=== PATIENT | female | born 1960 | race Caucasian/White ===

== ENCOUNTER → 2017-09-17 13:57 | Outpatient (CLI) | payer OTHER, SELFPAY ==
[2017-09-17 15:43] LABS: Alanine Aminotransferase 32 IU/L (9-52); Albumin 4.5 g/dL (3.5-5.0); Albumin Globulin Ratio 1.6 (1.0-2.8); Alkaline Phosphatase 72 U/L (38-126); Aspartate Aminotransferase 19 IU/L (14-36); BUN Creatinine Ratio 25.5 (6-22); Bilirubin Total 0.4 mg/dL (0.2-1.3); Blood Urea Nitrogen 28 mg/dL (7-17); Calcium 9.6 mg/dL (8.4-10.2); Carbon Dioxide 24 mmol/L (22-32); Chloride 104 mmol/L (98-107); Cholesterol 171 mg/dL (140-199); Estimated Glomerular Filt Rate 51.4 mL/min (>60); Globulin 2.9 g/dL (1.7-4.1); Glucose 102 mg/dL (70-100); HDL Cholesterol 54 mg/dL (40-60); HEMOLYSIS 20 (0-50); LDL Cholesterol Calculated 85 mg/dL (<100); Potassium 4.4 mmol/L (3.4-5.1); Sodium 143 mmol/L (137-145); Total Protein 7.4 g/dL (6.3-8.2); Triglycerides 158 mg/dL (35-150)
[2017-09-17 16:00] LABS: Free T4, Direct Thyroxine 1.22 ng/dL (0.78-2.19)
[2017-09-17 16:01] LABS: Free T3, Triiodothyronine Free 3.35 pg/mL (2.77-5.27)
[2017-09-17 16:14] LABS: Thyroid Stimulating Hormone 6.99 uIU/mL (0.47-4.68)
== END ==
PROVIDERS: PCP Family Medicine; Visit Provider Family Medicine
DX: E03.9 Hypothyroidism, unspecified (principal); I10 Essential (primary) hypertension; E66.9 Obesity, unspecified
CPT/HCPCS: 36415; 80053; 80061; 84439; 84443; 84481

== ENCOUNTER → 2017-09-20 13:57 | Outpatient (CLI) | payer OTHER, SELFPAY | PROVIDERS: Family Provider Family Medicine; PCP Family Medicine; Visit Provider Family Medicine | DX: Z53.9 Procedure and treatment not carried out, unspecified reason (principal); I10 Essential (primary) hypertension; E03.9 Hypothyroidism, unspecified; Z20.5 Contact with and (suspected) exposure to viral hepatitis; Z12.4 Encounter for screening for malignant neoplasm of cervix ==

== ENCOUNTER → 2017-10-24 14:04 | Outpatient (CLI) | payer OTHER, SELFPAY ==
[2017-10-24 16:05] LABS: BUN Creatinine Ratio 25.7 (6-22); Blood Urea Nitrogen 36 mg/dL (7-17); Calcium 9.5 mg/dL (8.4-10.2); Carbon Dioxide 26 mmol/L (22-32); Chloride 105 mmol/L (98-107); Estimated Glomerular Filt Rate 38.9 mL/min (>60); Glucose 98 mg/dL (70-100); HEMOLYSIS 15 (0-50); Potassium 4.2 mmol/L (3.4-5.1); Sodium 143 mmol/L (137-145)
[2017-10-24 16:30] LABS: TSH w/ Reflex to FT4 4.24 uIU/mL (0.47-4.68)
[2017-10-24 17:00] LABS: Hep C Virus Ab w/Reflex Quant NEGATIVE s/c (NEGATIVE)
== END ==
PROVIDERS: Family Provider Family Medicine; PCP Family Medicine; Visit Provider Family Medicine
DX: I10 Essential (primary) hypertension (principal); E03.9 Hypothyroidism, unspecified; Z20.5 Contact with and (suspected) exposure to viral hepatitis
CPT/HCPCS: 36415; 80048; 84443; 86803

== ENCOUNTER → 2018-01-07 10:24 | Outpatient (CLI) | payer OTHER, SELFPAY | DX: Z23 Encounter for immunization (principal) | CPT/HCPCS: 90471; 90686 ==

== ENCOUNTER → 2018-11-05 11:10 | Outpatient (CLI) | payer OTHER, SELFPAY ==
[2018-11-05 12:12] LABS: Alanine Aminotransferase 24 IU/L (9-52); Albumin 4.5 g/dL (3.5-5.0); Albumin Globulin Ratio 1.6 (1.0-2.8); Alkaline Phosphatase 64 U/L (38-126); Aspartate Aminotransferase 17 IU/L (14-36); Bilirubin Total 0.7 mg/dL (0.2-1.3); Blood Urea Nitrogen 21 mg/dL (7-17); Calcium 9.4 mg/dL (8.4-10.2); Carbon Dioxide 27 mmol/L (22-32); Chloride 104 mmol/L (98-107); Cholesterol 198 mg/dL (140-199); Estimated Glomerular Filt Rate > 60.0 mL/min (>60); Globulin 2.8 g/dL (1.7-4.1); Glucose 99 mg/dL (70-100); HDL Cholesterol 47 mg/dL (40-60); HEMOLYSIS < 15 (0-50); LDL Cholesterol Calculated 117 mg/dL (<100); Potassium 4.3 mmol/L (3.4-5.1); Sodium 141 mmol/L (137-145); Total Protein 7.3 g/dL (6.3-8.2); Triglycerides 171 mg/dL (35-150)
[2018-11-05 12:14] LABS: B Type Natriuretic Peptide < 100 (<100)
[2018-11-05 12:42] LABS: Thyroid Stimulating Hormone 2.63 uIU/mL (0.47-4.68)
== END ==
PROVIDERS: Family Provider Family Medicine; PCP Family Medicine; Visit Provider Internal Medicine Cardiovascular Disease
DX: I10 Essential (primary) hypertension (principal); R06.02 Shortness of breath; Z86.79 Personal history of other diseases of the circulatory system
CPT/HCPCS: 36415; 80053; 80061; 83880; 84443

== ENCOUNTER → 2019-02-10 15:14 | Outpatient (CLI) | payer OTHER, SELFPAY | PROVIDERS: PCP Family Medicine | DX: Z23 Encounter for immunization (principal) | CPT/HCPCS: 90471; 90686 ==

== ENCOUNTER → 2019-03-09 13:55 | Outpatient (CLI) | payer OTHER, SELFPAY ==
[2019-03-09 14:52] LABS: BUN Creatinine Ratio 23.3 (6-22); Blood Urea Nitrogen 28 mg/dL (7-17); Calcium 9.6 mg/dL (8.4-10.2); Carbon Dioxide 29 mmol/L (22-32); Chloride 104 mmol/L (98-107); Estimated Glomerular Filt Rate 46.3 mL/min (>60); Glucose 113 mg/dL (70-100); HEMOLYSIS < 15 (0-50); Potassium 4.4 mmol/L (3.4-5.1); Sodium 142 mmol/L (137-145)
[2019-03-09 15:14] LABS: B Type Natriuretic Peptide < 100 (<100)
== END ==
PROVIDERS: PCP Family Medicine; Visit Provider Family Medicine
DX: E66.9 Obesity, unspecified (principal); I10 Essential (primary) hypertension; I50.9 Heart failure, unspecified
CPT/HCPCS: 36415; 80048; 83880

== ENCOUNTER → 2019-03-17 14:44 | Outpatient (CLI) | payer OTHER, SELFPAY ==
[2019-03-17 16:11] LABS: BUN Creatinine Ratio 22.3 (6-22); Blood Urea Nitrogen 29 mg/dL (7-17); Calcium 9.5 mg/dL (8.4-10.2); Carbon Dioxide 27 mmol/L (22-32); Chloride 102 mmol/L (98-107); Estimated Glomerular Filt Rate 42.2 mL/min (>60); Glucose 116 mg/dL (70-100); HEMOLYSIS 17 (0-50); Potassium 4.2 mmol/L (3.4-5.1); Sodium 139 mmol/L (137-145)
== END ==
PROVIDERS: PCP Family Medicine; Visit Provider Family Medicine
DX: N17.9 Acute kidney failure, unspecified (principal)
CPT/HCPCS: 36415; 80048

== ENCOUNTER → 2019-04-21 13:58 | Outpatient (CLI) | payer OTHER, SELFPAY ==
[2019-04-21 15:32] LABS: BUN Creatinine Ratio 23.1 (6-22); Blood Urea Nitrogen 30 mg/dL (7-17); Calcium 9.6 mg/dL (8.4-10.2); Carbon Dioxide 27 mmol/L (22-32); Chloride 103 mmol/L (98-107); Estimated Glomerular Filt Rate 42.2 mL/min (>60); Glucose 120 mg/dL (70-100); HEMOLYSIS < 15 (0-50); Potassium 4.2 mmol/L (3.4-5.1); Sodium 140 mmol/L (137-145)
== END ==
PROVIDERS: PCP Family Medicine; Visit Provider Orthopaedic Surgery
DX: Z01.812 Encounter for preprocedural laboratory examination (principal); R73.9 Hyperglycemia, unspecified; Z01.818 Encounter for other preprocedural examination; I10 Essential (primary) hypertension
CPT/HCPCS: 36415; 80048; 93005

== ENCOUNTER → 2019-06-11 10:03 | Outpatient (CLI) | payer OTHER, SELFPAY ==
[2019-06-11 10:49] LABS: Add Manual Diff / Slide Review NO; Basophils Absolute Auto 100 /uL (0-100); Basophils Percent Auto 1.3 % (0-2); Eosinophils Absolute Auto 200 /uL (0-450); Eosinophils Percent Auto 2.4 % (2-4); Hematocrit 41.9 % (36-46); Hemoglobin 14.1 g/dL (12.0-16.0); Lymphocytes Absolute Auto 1900 /uL (1100-4500); Lymphocytes Percent Auto 24.9 % (25-40); Mean Corpuscular HGB Conc 33.6 % (30-36); Mean Corpuscular Hemoglobin 31.5 PG (26-34); Mean Corpuscular Volume 93.9 fL (80-100); Monocytes Absolute Auto 600 /uL (0-900); Neutrophils Absolute Auto 4900 /uL (1500-7000); Neutrophils Percent Auto 63.4 % (50-75); Platelet Count 236 X10^3/uL (150-400); Red Blood Cell Count 4.46 X10^6/uL (4.0-5.2); Red Cell Distribution Width 13.1 % (11.6-14.8); White Blood Cell Count 7.8 X10^3/uL (4.5-11.0)
[2019-06-11 10:58] LABS: Carbon Dioxide 27 mmol/L (22-32); Chloride 104 mmol/L (98-107); HEMOLYSIS < 15 (0-50); Potassium 4.3 mmol/L (3.4-5.1); Sodium 141 mmol/L (137-145)
== END ==
PROVIDERS: PCP Family Medicine; Referring Provider Orthopaedic Surgery; Visit Provider Orthopaedic Surgery
DX: Z01.812 Encounter for preprocedural laboratory examination (principal); Z01.818 Encounter for other preprocedural examination; R73.9 Hyperglycemia, unspecified
CPT/HCPCS: 36415; 80051; 83036; 85025

== ENCOUNTER 2019-06-17 08:41 | Day surgery (SDC) | payer OTHER, SELFPAY ==
[2019-06-10 13:35] VITALS: BMI 41.9
[2019-06-17] VITALS (13 sets, daily range): BP systolic 118–156; BP diastolic 60–99; PULSE 64–83; RESP 8–19; TEMP 36.6–37.5; O2SAT 91–99; BMI 41.9
--- NOTE | 2019-06-17 09:21 | DI.RAD.S_ITS ---
PROCEDURE: XR KNEE LT 1TO2V INDICATIONS: post op film TECHNIQUE: 2 view(s) of the knee acquired. COMPARISON: [facility] MARGARETTE Ritchie, XR KNEE ARTHRITIC SERIES BI, 04/20/2019, 15:00. FINDINGS: Bones: Patient is status post knee joint arthroplasty. Hardware components are in expected positions. Visualized bony structures are intact. Soft tissues: Overlying postoperative changes are noted. Expected postoperative changes within the overlying soft tissues are present there is a soft tissue air, edema and fluid. No unexpected radiopaque foreign bodies are evident. IMPRESSION: Expected postsurgical changes related to total left knee arthroplasty. Dictated by: Cholo Ramírez M.D. on 06/17/2019 at 13:16 Approved by: Cholo Ramírez M.D. on 06/17/2019 at 13:17
[2019-06-17] MEDS: LACTATED RINGERS 1,000 ML 42 ML IV (09:30)
[2019-06-17] MEDS: CELECOXIB 200 MG CAPSULE PO (09:42)
[2019-06-17] MEDS: ACETAMINOPHEN 325 MG TABLET 975 MG PO (09:42)
[2019-06-17] MEDS: PREGABALIN 75 MG CAPSULE PO (09:42)
--- NOTE | 2019-06-17 10:56 | PM.PREOP ---
Pre-operative Note Interval Note History & Physical reviewed/Exam performed by Physician: Yes Changes to H&P: No
--- NOTE | 2019-06-17 10:57 | PM.OP.1 ---
Operative Date/Time/Diagnoses Date of procedure: 06/17/19 Time of procedure: 13:23 Pre-op diagnosis: Left knee osteoarthritis Post-op diagnosis: same Procedure & Clinicians Procedure: Left total knee arthroplasty Same procedure as scheduled: Yes Indications: The patient presents today for total knee arthroplasty after failure of conservative treatment. The nature of the procedure including the risks and benefits, alternatives, postoperative course and expected outcome were discussed and all questions answered. Consent was obtained. Operative site confirmed and marked. Surgeon: Lino Luz Associate Embalmer/Funeral Director: Phil Choi Anesthesia Type: General and Local Operative Notes Findings: A standard +0 femoral cut was made. The tibial cut was made at approximately 11 mm from the less affected lateral side. The knee was well balanced in flexion-extension with standard releases and osteophyte removal. The knee was just slightly more lax medially and laterally. Both gaps were slightly larger than expected and a 12 mm insert rather than the expected 10 mm insert was necessary. Final mediolateral balance and patellar tracking was excellent. Closure Type: primary Specimen(s): none sent Prosthetic devices, grafts, tissues, transplants, or devices: [employer] BCS: 5 femoral component, 3 tibial component, 12 mm BCS polyethylene tray and 32 x 9 mm round patella Applied: implant(s) Estimated Blood Loss (mL): 10 Blood products transfused: none Tourniquet time (min): 54 Procedure in detail: The patient was taken to the operative suite and placed under anesthesia. The patient was given prophylactic antibiotics prior to surgery. The patient was also given tranexamic acid, 1 g, just prior to surgery for postoperative hemostasis. The lateral knee was prepped and the joint injected with 20 mL of 1% Lidocaine with epinephrine. The knee was then prepped and draped in usual sterile fashion. The leg was exsanguinated with an Esmarch dressing and the tourniquet raised to 250 torr. A 15 cm anterior incision was made. Next a medial trivector arthrotomy was made. The extensor mechanism was marked to ensure accurate repair. Initial exposing dissection was carried out medially and laterally. The knee was then flexed and the intramedullary femoral guide mary jo placed. The distal femoral cut was made in 6? of valgus at the +0 position. The femoral size was measured and the appropriate cutting block was then placed and the anterior, posterior and chamfer cuts made. The intramedullary tibial alignment mary jo was then placed. The guide was set to remove approximately 11 mm from the less affected lateral side. The proximal tibial cut was then made with an oscillating saw. All meniscus and bony debris was then removed. Posterior femoral osteophytes removed with a curved osteotome. Flexion extension gaps were checked. No specific balancing was required other than routine exposure and removal of osteophytes. The soft tissues were then injected with a combination of 20 mL of half percent Marcaine with epinephrine and 20 mL of Exparel. The trial components were then placed. The knee was then extended and the patellar thickness was measured and a cut made removing approximately 9 mm of bone. The patella was then sized and drilled. Some excess lateral bone was excised and the patellofemoral ligament released. The knee went into full extension and flexion beyond 130?. There was excellent medial-lateral balance throughout motion. There was a slight increased medial as opposed to lateral laxity in extension. Patellar tracking was excellent. The trial components were removed and the knee was cleansed with Pulsavac irrigation and dried. The final components were cemented with high viscosity vacuum mixed bone cement with antibiotics. The joint was filled with a dilute Betadine solution. The knee was held in extension and the patellar clamped until the cement was adequately cured. The knee was then irrigated. The extensor mechanism was closed with 5 interrupted #1 Vicryl sutures and a running Quill suture at approximately 90 degrees of flexion. The joint was then injected with a combination of 1 g of tranexamic acid and 20 mL of quarter percent Marcaine with epinephrine. The subcutaneous tissue was closed with 2 0 Vicryl. The skin was closed with absorbable subcuticular sutures and surgical adhesive. An Aquacel dressing and Brandon wrap were then applied. The patient tolerated the procedure well and was returned to recovery room in good condition. Complications: none Post-operative Condition: stable Disposition: PACU Plan for aftercare: Standard postoperative total knee protocol.
[2019-06-17] MEDS: CEFAZOLIN 2 GM/100 ML FROZ.PIGGY IV (11:45)
[2019-06-17] MEDS: TRANEXAMIC ACID 1,000 MG VIAL 1000 MG INJ (12:10)
[2019-06-17] MEDS: LIDOCAINE 1% W/EPI 20 ML INJ (12:15)
--- NOTE | 2019-06-17 12:20 | SUR.OPER ---
Supine on padded OR bed. Pillow under head, arms secured on padded armboards <90 degree abduction. Safety belt across torso. Non-operative leg secured with tape over blanket over lower leg. Operative leg secured in Brian positioner. Foam padded brace at thigh of operative leg.
[2019-06-17] MEDS: BUPIVACAINE 0.25% W/ EPI (PF) 20 ML, TRANEXAMIC ACID 1,000 MG, SODIUM CHLORIDE 0.9% 10 ML INJ (12:24)
[2019-06-17] MEDS: BUPIVACAINE 0.25% W/ EPI (PF) 40 ML, BUPIVACAINE LIPOSOME 266 MG, SODIUM CHLORIDE 0.9% ... INJ (12:25)
[2019-06-17] MEDS: HYDROMORPHONE 2 MG INJ IV ×2 (13:46→14:08)
--- NOTE | 2019-06-17 14:51 | SUR.PHASEI ---
Report to TANIA Montanez. Pt transferred to room 218 in stable condition. No updates needed from original report. Family notified per pts request
--- NOTE | 2019-06-17 15:03 | PC.NURSE ---
Pt to floor at 1450; IV SL; O2 2L=95%; patient denies pain; SCDs active; pt awake and alert; call light within reach
[2019-06-17] MEDS: ACETAMINOPHEN 325 MG TABLET 650 MG PO ×2 (16:12→19:54)
[2019-06-17] MEDS: LACTATED RINGERS 1,000 ML 125 ML IV (16:12)
[2019-06-17] MEDS: IBUPROFEN 400 MG TABLET PO ×3 (17:26→23:56)
--- NOTE | 2019-06-17 18:50 | PC.NURSE ---
Addendum entered by Lidia Burrell R.N. 06/17/19 21:33: Stable post op course. 2PA to BCS w/o incidence. Med w/tylenol & ibuprofen for discomfort w/good relief. Dag CDI IVF continue as per orders. Call light w/in reach, bed alarm on for pt safety. Continue w/plan of care. Original Note: Pt awake, watching TV. Denies discomfort at this time. Lungs clear, SpO2 96% RA SCD in place. IVF infusing into the right hand at 125cc/hr via pump w/o incidence. Brandon/aquacell dsg to left knee CDI Call light w/n reach, bed alarm on for pt safety.
[2019-06-17] MEDS: METOPROLOL IR 50 MG TABLET 75 MG PO (19:54)
[2019-06-17] MEDS: ASPIRIN EC 81 MG TABLET PO (19:56)
[2019-06-17] MEDS: SIMVASTATIN 20 MG TABLET PO (20:06)
[2019-06-17] MEDS: buPROPion SR 100 MG TAB 200 MG PO (20:06)
[2019-06-17] MEDS: CEFAZOLIN VIAL 3 GM in SODIUM CHLORIDE 0.9% 100 ML 200 ML IV (20:09)
[2019-06-18] VITALS: BP 104/59; PULSE 73; RESP 16; TEMP 36.5; O2SAT 91
[2019-06-18] MEDS: LACTATED RINGERS 1,000 ML 125 ML IV (00:40)
[2019-06-18] MEDS: IBUPROFEN 400 MG TABLET PO ×3 (04:19→12:15)
[2019-06-18] MEDS: CEFAZOLIN VIAL 3 GM in SODIUM CHLORIDE 0.9% 100 ML 200 ML IV (04:19)
[2019-06-18 04:22] VITALS: BP 132/74; PULSE 70; RESP 18; TEMP 36.5; O2SAT 94
[2019-06-18] MEDS: OXYCODONE IR 5 MG TABLET 10 MG PO ×4 (05:10→15:24)
[2019-06-18 06:34] LABS: Hematocrit 36.6 % (36-46); Hemoglobin 12.2 g/dL (12.0-16.0)
[2019-06-18] MEDS: LEVOTHYROXINE 100 MCG TABLET 200 MCG PO (06:37)
--- NOTE | 2019-06-18 07:36 | PM.PNPO.1 ---
Subjective Subjective Date Patient Seen: 06/18/19 Time Patient Seen: 07:36 Interval history: POD #1 s/p left total knee arthroplasty with Dr. Luz. Patient's pain is well controlled with oxycodone, Tylenol, and ibuprofen. She is taking ASA for VTE prophylaxis. She is voiding without difficulty or assistance. Exam Vital Signs (past 8 hours): - 06/18/19 00:00 06/18/19 04:22 Temperature 97.7 F 97.7 F Pulse Rate 73 70 Respiratory Rate 16 18 Blood Pressure 104/59 L 132/74 Pulse Oximetry 91 94 Oxygen Delivery Method Nasal Cannula Oxygen Flow Rate 0 Narrative Exam Narrative: Patient lying in bed. Alert orient x3. Aquacel dressing CDI. She is able to actively dorsiflex and plantar flex. Pulses are symmetric. Calves are soft, compressible, nontender bilaterally. Objective Labs Result Diagrams: 06/18/19 06:20 Labs: Laboratory Results - last 24 hr 06/18/19 06:20 Hgb 12.2 Hct 36.6 Assessment & Plan Post-op Postoperative Procedures: Procedures Operation Date: 06/17/19 10:45 Actual Procedures Side Surgeon p Total Knee Arthroplasty Left Lino Luz MD Patient will mobilize with physical therapy today. Patient has been hypotensive and dizzy and will give 1 L bolus fluid. continue current pain control. Continue ASA for DVT prophylaxis. If patient mobilizing safely with adequate pain control she can discharge home today. Quality VTE Deep Vein Thrombosis/Pulmonary Embolism Present on Admission: No
[2019-06-18] MEDS: buPROPion SR 100 MG TAB 200 MG PO (09:04)
[2019-06-18] MEDS: FUROSEMIDE 20 MG TABLET PO (09:04)
[2019-06-18] MEDS: ACETAMINOPHEN 325 MG TABLET 650 MG PO ×2 (09:04→14:10)
[2019-06-18] MEDS: CITALOPRAM 20 MG TABLET 40 MG PO (09:04)
[2019-06-18] MEDS: METOPROLOL IR 50 MG TABLET 75 MG PO (09:05)
[2019-06-18] MEDS: ASPIRIN EC 81 MG TABLET PO (09:05)
[2019-06-18] MEDS: AMLODIPINE 5 MG TABLET PO (09:05)
[2019-06-18 09:40] VITALS: BP 152/78; PULSE 73; RESP 17; TEMP 36.6; O2SAT 98
--- NOTE | 2019-06-18 10:29 | CM.DANOTE ---
DCP; Case received, EMR reviewed and met with patient. Introduced self and role. Was able to obtain information from patient regarding her baseline activity level. DCP assessment completed with information currently available. Patient is a 59 year old female who admitted yesterday morning to the care of the orthopedic team. PCP: Dr. Acosta. Payer: confirmed: [facility]. Patient came to the hospital for a surgical procedure. She had left total knee arthroplasty. Patient has history of osteoarthritis in her knees, resulting in chronic pain. Met with patient in her room. She was sitting up in her bed, alert and oriented. She has not yet worked with P.T. 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 She stated, the standing has taken a toll on her knees. Confirmed with patient that her daughter, Lavonne Santana, will be assisting patient when she goes home. She will also be doing outpatient P.T. P: DCP to continue to follow. Patient should be able to go home when she is medically stable and cleared by P.T. Estefany Mcmillan RN/Computer Designer
--- NOTE | 2019-06-18 10:50 | PT.IIE ---
Current Diagnoses Unilateral primary osteoarthritis, left knee (06/17/19) Surgery Performed Operation Date: 06/17/19 10:45 Actual Procedures p Total Knee Arthroplasty(Left) - Lino Luz MD Surgical History (Last Updated 06/10/19 @ 13:50 by Aviva Garcia RN) S/P thoracentesis (Acute) Medical History (Last Updated 06/10/19 @ 15:22 by Aviva Garcia RN) Atrial fibrillation (Chronic) Cardiomyopathy (Chronic) Heart failure, systolic and diastolic (Chronic) Hyperlipidemia (Chronic) Hypertension (Chronic) Hyperthyroidism (Resolved) Hypothyroidism (Chronic) Moderate tobacco dependence (06/08/15) Obesity (Chronic) Sun allergy (Acute) Physical Therapy Inpatient Evaluation/Re-Eval M1 PT/OT-IP Prior Functional Status Start: 06/18/19 08:35 Freq: NEEDED Status: Active Protocol: Document 06/18/19 10:29 AW (Rec: 06/18/19 10:50 AW [id number]) Medical Review Prior Functional Status Medical History Reviewed Yes Communication WNl Mobility and Gait Pt has used a left knee brace for the past six months. She has been independent with ambulation but able to tolerate decreasing distances. Activities of Daily Living and IADL's Independent Social History Household Members other Living Arrangements House Number of Floors (Floors) One Floor Number of Stairs To Enter/Railing? 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 Pt intends to discharge to her daughter's home where daughter, daughter's boyfriend , and grandchildren will be available to assist 05/11. Pt's house has no stairs, but she will have better support at her daughter's house. M2 PT-IP Current Condition Start: 06/18/19 08:35 Freq: NEEDED Status: Active Protocol: Document 06/18/19 10:29 AW (Rec: 06/18/19 10:50 AW [id number]) Physical Therapy Current Condition Current Condition Evaluation Date 06/18/19 Treatment Diagnosis L TKA, impaired mobility Onset Date 06/17/19 Weight Bearing Status Weight Bearing Status Weight Bear as Tolerated M3 PT-IP Subjective Start: 06/18/19 08:35 Freq: NEEDED Status: Active Protocol: Document 06/18/19 10:29 AW (Rec: 06/18/19 10:50 AW [id number]) Subjective Physical Therapy Visit Type Type Initial Evaluation Visit Start Time 09:32 Visit Stop Time 10:00 Total Visit Minutes 28 Physical Therapy Visit Comments Patient Comments Pt is willing to participate with PT Patient Goals To discharge to her daughter's house with family support. Therapy Pain Assessment Pain When Pain Assessed At Rest Pain Present Pain Present Pain Reported Location left knee Intensity 5 Scale Used Numeric (1 - 10) Pain Management Techniques Apply Cold,Timing of Activity with Medications M4 PT-IP Mobility and Gait Start: 06/18/19 08:35 Freq: NEEDED Status: Active Protocol: Document 06/18/19 10:29 AW (Rec: 06/18/19 10:50 AW [id number]) PT-Bed Mobility Assessment Supine to Sit Supine to Sit Contact Guard Assistance Scooting Scooting to Edge of Bed Standby Assistance PT-Transfer Assessment Sit to and From Stand Sit to and from Stand Contact Guard Assistance,1 Person Assistance,Use of Upper Extremities Equipment Transfer Assistive Device Gait Belt,Front Wheeled Walker Orthotic/Prosthetic Devices or Brace: No Transfers Transfer Destination Chair Transfer Technique pt ambulated with fww Transfer Ability Level of Assist Contact Guard Assistance,Use of Upper Extremities Comments Mobility Comments Pt sitting up in bed upon PT arrival. She completed supine to sit CGA and sit to stand with FWW CGA. She brought her own walker to the hospital ( borrowed from [facility]) but it may be too narrow for her. After gait assessment, pt returned to the room and transferred to the chair SBA requiring cues to keep the walker with her until ready to sit and additional cues to use both hands on the chair arms to control her descent to sitting. Pt was positioned in the chair with fresh ice packs applied, call light and table within reach, and visitors in the room keeping her company. Gait Assessment Gait Gait Assistance Required: Contact Guard Assist Distance (Feet) 75 Able to Maintain Weight Bearing Status Yes During Gait Assistive Devices Assistive Device Gait Belt,Front Wheeled Walker Orthotic/Prosthetic Devices or Brace: No Gait Deviations General Gait Pattern Antalgic,Decreased Stride Length,Decreased Feet Clearance,Flexed Trunk,Step-to Gait Factors Limiting Gait Function Factors Limiting Gait Function Decreased Activity Tolerance, Decreased Strength,Limited Range of Motion,Pain,Poor Balance,Poor Safety Awareness Comments Gait Comments Pt ambulated in the halls with FWW CGA. She required cues to keep the FWW closer to her trunk for optimal support. It is possible that the walker is too narrow for her. Stair Climbing Assessment Comments Stair Climbing Comments Not assessed due to decreased activity tolerance PT-Balance Assessment Sitting Balance and Reactions Static Sitting Balance Ability Good Dynamic Sitting Balance Ability Good Standing Balance and Reactions Static Standing Balance Ability Good Dynamic Standing Balance Ability Good Device Used FWW M5 PT-IP Objective Assessments Start: 06/18/19 08:35 Freq: NEEDED Status: Active Protocol: Document 06/18/19 10:29 AW (Rec: 06/18/19 10:50 AW [id number]) Orientation Orientation/Cognition Level of Alertness Alert Orientation Name,Day of Week,Place, Situation Language Function Ability No Deficits Noted Safety Awareness Decreased Safety Awareness Memory Description No Deficits Noted Comments Pt requiring cues for walker management Gross Range of Motion Lower Extremity ROM Assessment Left Impaired Strength Lower Extremity Strength Assessment Bilaterally Impaired Hip 4/5 Knee 4/5 Ankle 4+/5 Coordination Assessment Gross Coordination Gross Coordination WNL Sensation Assessment Sensation Gross Sensation WNL M6 PT-IP Treatment Start: 06/18/19 08:35 Freq: NEEDED Status: Active Protocol: Document 06/18/19 10:29 AW (Rec: 06/18/19 10:50 AW [id number]) Physical Therapy Treatment Exercises Exercises Ankle Pumps,Quad Sets,Heel Slides,Supine Hip Abduction Education Education Provided Precautions,Weight Bearing Status,Post-Op Packet,Safety Other Treatments Other Treatment Performed Provided education on role of PT, plan of care, weightbearing status, and safe use of FWW. M7 PT-IP Assessment and Plan Start: 06/18/19 08:35 Freq: NEEDED Status: Active Protocol: Document 06/18/19 10:29 AW (Rec: 06/18/19 10:50 AW [id number]) PT Summary Assessment and Plan Potential Rehabilitation Potential Good Status of Condition at Evaluation Evolving Summary Impairments Pain,ROM,Strength,Balance,Bed Mobility,Transfers,Gait, Activity Tolerance Assessment Summary Naheed is a 59 yo woman seen for PT evaluation on POD1 following L TKA. At baseline, she has been independent with ambulation but has used a knee brace for the past six months and has had decreased standing/walking tolerance. 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 On evaluation, pt required SBA to CGA for all mobility and cues for safety with FWW. Pt will be seen again to do stair training but PT anticipates she will be safe to return home with family support and outpatient PT once medically stable. Goals Bed Mobility Goal Standby Assistance Transfer Goal Standby Assistance,Front Wheeled Walker Gait Goal Standby Assistance,Front Wheel Walker Gait Distance 200 Other Goals - up/down 2 steps with left rail ascending SBA Days to Meet Goals 2 Frequency of Treatment Frequency Of Treatment Twice a Day Treatment Plan Physical Therapy Treatment Plan Bed Mobility Training,Transfer Training,Gait Training, Therapeutic Exercise,Balance Retraining,Post Op Education, Discharge Planning,Hot or Cold Pack,Neuromuscular Re-ed, Coordination Retraining,Manual Therapy Other Recommendations and Next Treatment stairs, progress gait distance Focus Recommendations To Nursing Amount of Assist Needed Standby Assistance Discharge Recommendations PT Discharge Recommendations Home with Assistance, Outpatient PT Transportation Needs at Discharge Private Vehicle
--- NOTE | 2019-06-18 14:56 | PT.IPTN ---
Current Diagnoses Unilateral primary osteoarthritis, left knee (06/17/19) Surgery Performed Operation Date: 06/17/19 10:45 Actual Procedures p Total Knee Arthroplasty(Left) - Lino Luz MD Physical Therapy Treatment Note M2 PT-IP Current Condition Start: 06/18/19 08:35 Freq: NEEDED Status: Active Protocol: Document 06/18/19 10:29 AW (Rec: 06/18/19 10:50 AW [id number]) Physical Therapy Current Condition Current Condition Evaluation Date 06/18/19 Treatment Diagnosis L TKA, impaired mobility Onset Date 06/17/19 Weight Bearing Status Weight Bearing Status Weight Bear as Tolerated M3 PT-IP Subjective Start: 06/18/19 08:35 Freq: NEEDED Status: Active Protocol: Document 06/18/19 14:41 SP (Rec: 06/18/19 15:28 SP [id number]) Subjective Physical Therapy Visit Type Type Treatment Note Visit Start Time 14:41 Visit Stop Time 14:56 Total Visit Minutes 15 Notes daughter completed caregiver training. Physical Therapy Visit Comments Patient Comments Pt is willing to work with PT. Patient Goals To discharge to her daughter's house with family support this afternoon. Therapy Pain Assessment Pain When Pain Assessed During Mobility Pain Present Pain Present Pain Reported M4 PT-IP Mobility and Gait Start: 06/18/19 08:35 Freq: NEEDED Status: Active Protocol: Document 06/18/19 14:41 SP (Rec: 06/18/19 15:28 SP [id number]) PT-Bed Mobility Assessment Sit to Supine Sit to Supine Standby Assistance Scooting Scooting Up and Down in Bed Standby Assistance PT-Transfer Assessment Sit to and From Stand Sit to and from Stand Standby Assistance,Use of Upper Extremities Equipment Transfer Assistive Device Gait Belt,Front Wheeled Walker Orthotic/Prosthetic Devices or Brace: No Transfers Transfer Destination Bed Transfer Technique pt ambulated with fww Transfer Ability Level of Assist Standby Assistance,Use of Upper Extremities Comments Mobility Comments Pt was sitting in chair when arrived. Daughter donned gait belt. Sit to stand SBA provided by daughter using FWW with proper hand placement. Pt was able to ambulate chair to stairs and back using FWW sBA with intermittent cuing for proper gait phases with LLE knee flexion and heel toe patterning to progress toward normal gait patterning, encouraged daughter to give patient reminders to improve proper ROM as [employer] did with verbal confirmation she has always walked that way but ok I can. Pt was able to complete increased distance approx 540 ft with no stopped rest chair to stairs and back to L side of bed. Pt completed sitting to supine herself SBA with no assist needed. Pt asked to stay rested in bed prior to getting ready to leave with daughter. Pt had call light and all needs inreach before left. Daughter in room. Daughter provided all assist SBA, CGA- light Min A during stair mgt. Gait Assessment Gait Gait Assistance Required: Standby Assistance Distance (Feet) 540 Able to Maintain Weight Bearing Status Yes During Gait Assistive Devices Assistive Device Gait Belt,Front Wheeled Walker Orthotic/Prosthetic Devices or Brace: No Gait Deviations General Gait Pattern Antalgic,Decreased Stride Length,Decreased Feet Clearance,Flexed Trunk,Step-to Gait Factors Limiting Gait Function Factors Limiting Gait Function Decreased Activity Tolerance, Decreased Strength,Limited Range of Motion,Pain Comments Gait Comments See mobilitiy comments. Ambulated 540 ft using FWW SBA provided by daughter, cuing for proper L knee flexion heel toe gait for improved normal phases with slight self corrections. FOllowed with w/c but not needed. Stair Climbing Assessment Evaluation Level of Assist On Stairs Contact Guard Assistance, Minimal Assistance,1 Person Assistance Devices Stair Climbing Assistive Devices Left Railing Technique/Endurance Stair Climbing Direction Ascend and Descend Stair Climbing Technique Step to Step Number of Steps Climbed 3 Stair Climbing Set # Repetitions (reps) 1 Comments Stair Climbing Comments Pt ascended/ descended 3 stairs using LHR CGA- low Min A provided by daughter during caregiver training with cuing for proper patterning during descent step to patterning, stable to assimulate daughter' s home enterance. PT-Balance Assessment Sitting Balance and Reactions Static Sitting Balance Ability Good Dynamic Sitting Balance Ability Good Standing Balance and Reactions Static Standing Balance Ability Good Dynamic Standing Balance Ability Good Device Used FWW M5 PT-IP Objective Assessments Start: 06/18/19 08:35 Freq: NEEDED Status: Active Protocol: Document 06/18/19 10:29 AW (Rec: 06/18/19 10:50 AW [id number]) Orientation Orientation/Cognition Level of Alertness Alert Orientation Name,Day of Week,Place, Situation Language Function Ability No Deficits Noted Safety Awareness Decreased Safety Awareness Memory Description No Deficits Noted Comments Pt requiring cues for walker management Gross Range of Motion Lower Extremity ROM Assessment Left Impaired Strength Lower Extremity Strength Assessment Bilaterally Impaired Hip 4/5 Knee 4/5 Ankle 4+/5 Coordination Assessment Gross Coordination Gross Coordination WNL Sensation Assessment Sensation Gross Sensation WNL M6 PT-IP Treatment Start: 06/18/19 08:35 Freq: NEEDED Status: Active Protocol: Document 06/18/19 14:41 SP (Rec: 06/18/19 15:28 SP [id number]) Physical Therapy Treatment Exercises Exercises Seated Knee Flexion/Extension Knee ROM Measurement approx 80 deg Education Education Provided Precautions,Weight Bearing Status,Post-Op Packet,Safety Other Treatments Other Treatment Performed Provided education on importance of getting up and moving around hourly and performance of post op exercises to improve ROM until follows up with outpatient PT , stated will call tomorrow to set up with [facility] out patient clinic. M7 PT-IP Assessment and Plan Start: 06/18/19 08:35 Freq: NEEDED Status: Active Protocol: Document 06/18/19 14:41 SP (Rec: 06/18/19 15:28 SP [id number]) PT Summary Assessment and Plan Potential Rehabilitation Potential Good Status of Condition at Evaluation Evolving Summary Impairments Pain,ROM,Strength,Balance,Bed Mobility,Transfers,Gait, Activity Tolerance Assessment Summary See mobility comments. Pt improved distance with gait, transfers and bed mobility using FWW SBA. CGA- low Min A for stair mgt 3 steps step to patterning with cuing for proper sequencing. Pt is safe to return home with family support and outpatient PT once medically stable. Goals Bed Mobility Goal Standby Assistance Transfer Goal Standby Assistance,Front Wheeled Walker Gait Goal Standby Assistance,Front Wheel Walker Gait Distance 200 Other Goals - up/down 2 steps with left rail ascending SBA Days to Meet Goals 2 Frequency of Treatment Frequency Of Treatment Twice a Day Treatment Plan Physical Therapy Treatment Plan Bed Mobility Training,Transfer Training,Gait Training, Therapeutic Exercise,Balance Retraining,Post Op Education, Discharge Planning,Hot or Cold Pack,Neuromuscular Re-ed, Coordination Retraining,Manual Therapy Other Recommendations and Next Treatment stairs, progress gait distance Focus with proper gait phase form LLE. Recommendations To Nursing Amount of Assist Needed Standby Assistance Discharge Recommendations PT Discharge Recommendations Home with Assistance, Outpatient PT Transportation Needs at Discharge Private Vehicle
== END 2019-06-18 16:00 | disposition home or self-care (01) ==
LOC: OR 08:43 → AC 08:43
PROVIDERS: PCP Family Medicine; Referring Provider Family Medicine; Visit Provider Orthopaedic Surgery
PROC: 0SRD0JZ Replacement of Left Knee Joint with Synthetic Substitute, Open Approach (ICD-10-PCS; CPT 27447; principal; 2019-06-17 10:45)
DX: M17.12 Unilateral primary osteoarthritis, left knee (principal)
CPT/HCPCS: 27447; 36415; 73560; 85014; 85018; 97110; 97116; 97161; C1776; C9290; J0690; J1100; J1170; J2250; J2405; J2704; J3010

== ENCOUNTER 2019-09-10 16:46 | Emergency (ER) | payer OTHER, SELFPAY ==
[2019-06-17 15:24] VITALS: BMI 41.9
[2019-09-10 16:48] VITALS: BP 188/104; PULSE 82; RESP 15; TEMP 37.2; O2SAT 98; BMI 37.1
[2019-09-10 17:14] VITALS: BP 153/72; PULSE 73; RESP 20; O2SAT 98
[2019-09-10 17:23] VITALS: BP 153/82; PULSE 75; RESP 19; O2SAT 96
--- NOTE | 2019-09-10 17:29 | PC.NURSE ---
PT reports getting a new wrist BP cuff and getting reports of 240/160s. Here is ED B/P 153/72. Pt states she usually lays back and puts her wrist at side to run B/P. Pt instructed on proper use of cuff and to place wrist at heart level with feel on floor. Pt verbalizes understanding. Informed pt that we will continue to monitor B/P every 30 minutes. Pt reports she has dizziness and lightheadedness when she stands up to quickly or moves suddenly. Pt reports she notices if she changes positions slowly, it does not happen.
[2019-09-10 17:45] VITALS: BP 132/76; PULSE 72
[2019-09-10 17:59] VITALS: BP 132/76; PULSE 73; RESP 15; O2SAT 96
--- NOTE | 2019-09-10 18:00 | PC.NURSE ---
Patient states that she thinks she did not use her blood pressure cuff correctly. She stated that she was lightheaded and dizzy before she came in. Her blood pressure was taken in the ED and is 136/72. She does not report any lightheadedness or dizzyness at this time.
[2019-09-10 18:40] VITALS: BP 156/74; PULSE 74; RESP 14; O2SAT 96
--- NOTE | 2019-09-11 01:01 | ED_ITS ---
HPI - General Adult General Chief complaint: Hypertension Stated complaint: Dizzy, High BP, heart racing Source: patient Mode of arrival: Ambulatory Limitations: no limitations History of Present Illness HPI narrative: The patient presents with concerns for hypertension. She has a blood pressure cuff, the home reading on her blood pressure was 200 systolic. At that time she may have experienced a little dizziness, no visual changes, no headache, no other ENT complaints. She had no chest pain or dyspnea. She denies recent illness. She has no URI symptoms, dyspnea or cough. She has no confusion, no neurologic deficits. Upon arrival in the ER her blood pressure was reviewed, and was in the 130s range. Her nurse reviewed the blood pressure cuff use with the patient, she was not using the cuff appropriately. She is in no distress upon my visit. Her blood pressure is 130 systolic when I enter the room Related Data Previous Rx's Medication Instructions Recorded levothyroxine 200 mcg tablet 200 mcg PO DAILY #90 tab 10/08/18 amlodipine 5 mg tablet 5 mg PO DAILY #90 tab 04/10/19 meloxicam 15 mg tablet 15 mg PO QDAY #30 tab 04/24/19 furosemide 20 mg tablet 20 mg PO Q DAY #90 tab 05/07/19 metoprolol tartrate 50 mg tablet 75 mg PO BID #90 tabs 05/07/19 aspirin 81 mg PO BID #60 tab 06/18/19 ibuprofen 400 mg PO Q4HR #90 tab 06/18/19 simvastatin 20 mg tablet 20 mg PO HS #90 tab 07/20/19 hydrocodone 10 mg-acetaminophen 1 tab PO Q6H PRN #120 tab 08/19/19 325 mg tablet bupropion HCl 200 mg tablet,12 hr 200 mg PO BID #180 each 08/28/19 sustained-release citalopram 20 mg tablet 40 mg PO QDAY #60 tab 08/28/19 Allergies Allergy/AdvReac Type Severity Reaction Status Date / Time No Known Drug Allergies Allergy Verified 09/10/19 16:50 Review of Systems Review of Systems ROS Unobtainable: All systems reviewed & are unremarkable except as noted in HPI and below Constitutional Constitutional: Denies chills, Denies fever(s), Denies headache(s), Denies lethargy and Denies weakness Eyes Eyes: Denies change in vision ENT Ears, Nose, Mouth, and Throat: Reports as per HPI, Reports dizziness and Denies headache(s) Cardiovascular Cardiovascular: Denies chest pain, Denies syncope, Denies palpitations and Denies dyspnea Respiratory Respiratory: Denies cough and Denies dyspnea Gastrointestinal Gastrointestinal: Denies nausea Musculoskeletal Musculoskeletal: Denies back pain Integumentary/Breasts Skin/Breast: Denies rash Neurologic Neurologic: Reports dizziness, Denies syncope, Denies headache(s) and Denies weakness Endocrine Endocrine: Denies palpitations Patient History Medical History Atrial fibrillation (Chronic) Cardiomyopathy (Chronic) Heart failure, systolic and diastolic (Chronic) Hyperlipidemia (Chronic) Hypertension (Chronic) Hyperthyroidism (Resolved) Hypothyroidism (Chronic) Moderate tobacco dependence (06/08/15) Obesity (Chronic) Sun allergy (Acute) Surgical History S/P thoracentesis (Acute) Social History household members: other Smoking Status: Former smoker quit status: quit date established alcohol intake: current Smoking Status: Former smoker alcohol intake frequency: holidays/special occasions only Substance Use Type: former substance user Exam Initial Vital Signs Initial Vital Signs: Vital Signs Temperature 99.0 F 09/10/19 16:48 Pulse Rate 82 09/10/19 16:48 Respiratory Rate 15 09/10/19 16:48 Blood Pressure 188/104 H 09/10/19 16:48 Pulse Oximetry 98 09/10/19 16:48 Const General: cooperative and well developed Nutritional Appearance: well nourished [facility] Head: normocephalic and atraumatic Ears: TM's normal bilaterally Face and sinus: sinuses nontender, face symmetric and No dry mucous membranes Mouth: oral mucosae normal and moist mucous membranes Throat: posterior oropharynx normal Eyes General: appearance normal, both eyes and all related structures Eyelids: eyelids normal Conjunctivae: conjunctivae normal Sclera: sclerae normal Pupils: PERRL EOM: EOM intact bilaterally Neck Neck: No JVD Resp Effort & Inspection: normal respiratory effort and able to speak in complete sentences Auscultation: clear to auscultation bilaterally, no rales, no rhonchi and no wheezes Cardio Rate: regular rate Rhythm: regular rhythm Heart Sounds: S1 normal, S2 normal, no click, no gallops, no murmurs and no rubs Pulses: normal peripheral pulses Skin General: no rashes or lesions noted Course Course Course Narrative: We discussed treatment of hypertension. We discussed monitoring hypertension. She is instructed follow up with her doctor to review her hypertension management. Vital Signs Vital signs: Vital Signs - 8 hr 09/10/19 17:14 09/10/19 17:23 09/10/19 17:45 Pulse Rate 73 75 72 Respiratory Rate 20 19 Blood Pressure Blood Pressure [Left Arm] 153/72 H 153/82 H 132/76 Pulse Oximetry 98 96 09/10/19 17:59 09/10/19 18:40 Pulse Rate 73 74 Respiratory Rate 15 14 Blood Pressure 156/74 H Blood Pressure [Left Arm] 132/76 Pulse Oximetry 96 96 Discharge Plan Departure Patient Disposition: Home Clinical Impression: Hypertension Qualifiers: Hypertension type: essential hypertension Qualified Code(s): I10 - Essential (primary) hypertension Discharge Date/Time: 09/10/19 18:40 Instructions: DI for High Blood Pressure Activity Restrictions/Additional Instructions: Follow-up with your doctor regarding hypertension management. Return the ER if you develop chest pain, difficulty breathing, headaches, visual changes or confusion in conjunction with high blood pressure. Prescriptions: No Action levothyroxine 200 mcg tablet 200 mcg PO DAILY Qty: 90 RF: 3 meloxicam 15 mg tablet 15 mg PO QDAY Qty: 30 RF: 1 Hold Instructions: decreasing kidney function furosemide [Lasix] 20 mg tablet 20 mg PO Q DAY Qty: 90 RF: 3 metoprolol tartrate 50 mg tablet 75 mg PO BID Qty: 90 RF: 1 simvastatin [Zocor] 20 mg tablet 20 mg PO HS Qty: 90 RF: 0 hydrocodone-acetaminophen 10-325 mg tablet 1 tab PO Q6H PRN (Reason: pain) Qty: 120 RF: 0 citalopram 20 mg tablet 40 mg PO QDAY Qty: 60 RF: 1 bupropion HCl 200 mg tablet sustained-release 12 hr 200 mg PO BID Qty: 180 RF: 0 amlodipine 5 mg tablet 5 mg PO DAILY Qty: 90 RF: 1 aspirin 81 mg Tablet,Delayed Release (Dr/Ec) 81 mg PO BID Qty: 60 RF: 0 ibuprofen 400 mg Tablet 400 mg PO Q4HR Qty: 90 RF: 0
== END 2019-09-10 18:40 | disposition home or self-care (01) ==
PROVIDERS: Emergency Provider Emergency Medicine; PCP Family Medicine
DX: I10 Essential (primary) hypertension (principal); R42 Dizziness and giddiness
CPT/HCPCS: 93005; 93010; 99283

== ENCOUNTER 2019-09-30 15:15 | Outpatient (RCR) | payer OTHER, SELFPAY ==
[2019-06-17 15:24] VITALS: BMI 41.9
--- NOTE | 2019-06-30 12:27 | PT.OIE ---
Current Diagnoses Unilateral primary osteoarthritis, unspecified knee (06/30/19) Past Medical History (Last Updated 06/10/19 @ 15:22 by Aviva Garcia RN) Atrial fibrillation (Chronic) Cardiomyopathy (Chronic) Heart failure, systolic and diastolic (Chronic) Hyperlipidemia (Chronic) Hypertension (Chronic) Hyperthyroidism (Resolved) Hypothyroidism (Chronic) Moderate tobacco dependence (06/08/15) Obesity (Chronic) Sun allergy (Acute) Past Surgical History (Last Updated 06/10/19 @ 13:50 by Aviva Garcia RN) S/P thoracentesis (Acute) Visit Care Team Role Provider Type Liv Acosta DO Attending Provider Physician Primary Care Provider Referring Provider Specialty: [facility] Address: [address] [place] [address], [address], [facility] Email: [email or web address] Physical Therapy Initial Evaluation PT-OP-A Visit Information Start: 06/26/19 16:45 Freq: Status: Active Protocol: Document 06/30/19 11:15 HH (Rec: 06/30/19 12:27 [email or web address]) Out-Patient Physical Therapy Visit Information Visit Information Visit Type Initial Evaluation Visit Start Time 11:15 Visit Stop Time 15:45 Total Visit Minutes 30 Visit Number 1/6 Number of TICKET MARKER Visits 0 Evaluation Information Evaluation Date 06/30/19 PT-OP-B Current Condition Start: 06/26/19 16:45 Freq: Status: Active Protocol: Document 06/30/19 11:15 HH (Rec: 06/30/19 12:27 [email or web address]) Current Condition History of Current Condition Onset Date 06/17/19 Current Complaints L TKA, difficulty in walking and climbing stairs History of Current Condition Pt is a 59yo female presented to clinic after her L TKA by Dr. Luz on 06/17/2019 d/t chronic knee pain >2 years. Pt stated she still have stiffness and pain at her knee cap and joint line region but she is able to amb without walker since surgery. Pt has difficulty walk more than 1 block; sitting >30 mins; standing > 15 mins. She also has trouble negotiating stairs and getting in and out of the car due to limited flexion. But she did state her gait pattern has been significantly better than before and she is very satisfied at this point. She also has chronic R knee pain and planing to have R TKA possibly later this year. 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 Treatment Goals Patient/Caregiver Goals 1. Able to walk > 1 block without pain 2. Able to return to work 8 hrs shift as a tank builder without discomfort Prior Functional Status Baseline Function- ADL's Independent Baseline Function- Mobility Independent Baseline Function- Gait Pt used to walk with antalgic gait with excessive lateral weight shift. Baseline Function- Work/School Pt has difficulty standing for her entire 8 hrs shift d/t pain difficulty climbing stairs without rails. Current Functional Impairments (Reported) Functional Limitations- Work/School unable to stand >15 mins / sit >30mins Functional Limitations- Other unable to climb her step from entrance d/t pain and limited knee flexion Personal Factors Other Personal Factors That May Effect Depression Therapy/Recovery CHF PT-OP-C Subjective Start: 06/26/19 16:45 Freq: Status: Active Protocol: Document 06/30/19 11:15 HH (Rec: 06/30/19 12:27 [email or web address]) OP-PT Subjective Patient Comments Patient Comments 'Keira been getting much better compared to prior to surgery. Patient Reported Progress Improving Patient Questionnaires Lower Extremity Functional Scale LEFS Score 27 LEFS Impairment 60 to 79% Impaired (Score 17- 31) OP-PT Pain Assessment Location left knee Pain Location Details knee joint and patella Intensity 5 Scale Used Numeric (1 - 10) Description Aching Frequency Frequent Pain Aggravating Factors Activity,Exercise,Standing, Sitting,Walking,Stair Climbing ,Bending Pain Alleviating Factors Inactivity,Lying Supine, Position PT-OP-G Mobility & Gait Start: 06/26/19 16:45 Freq: Status: Active Protocol: Document 06/30/19 11:15 HH (Rec: 06/30/19 12:27 [email or web address]) OP Gait Assessment Gait Gait Assistance Required: Independent Assistive Devices Assistive Device None Gait Deviations General Gait Pattern Antalgic,Decreased Stride Length,Decreased Feet Clearance Factors Limiting Gait Function Factors Limiting Gait Function Decreased Activity Tolerance, Decreased Strength,Limited Range of Motion,Pain,Poor Balance,Poor Safety Awareness Comments Gait Comments pt amb with limited knee flexion during preswing and initial swing, along with early heel rise. Pt uses a slight circumduction on LLE with full knee extension during swing phase, along with R lateral trunk lean. Stair Climbing Evaluation Devices Stair Climbing Assistive Devices Left Railing,Right Railing Technique/Endurance Stair Climbing Direction Ascend and Descend Stair Climbing Technique Step to Step PT-OP-H Neuro Start: 06/26/19 16:45 Freq: Status: Active Protocol: Document 06/30/19 11:15 HH (Rec: 06/30/19 12:27 HH [email or web address]) Deep Tendon Reflex & Clonus Assessment Deep Tendon Reflex Left Patellar Deep Tendon Reflex 2+ Normal Bilateral Achilles Deep Tendon Reflex 2+ Normal PT-OP-J Posture/Palpation/Skin Start: 06/26/19 16:45 Freq: Status: Active Protocol: Document 06/30/19 11:15 HH (Rec: 06/30/19 12:27 HH [email or web address]) Posture Evaluation Position Standing Evaluation View Anterior Weight Distribution Weight Shifted Right Skin Assessment Circumference Measurement R knee Comments above knee joint = 22inch; knee joint =20inch; tibial tub = 16.5 inch L knee Comments above knee joint= 24.5 inch; knee joint = 21inch; tibial tub = 18 inch Other Assessments Skin Assessment Comments Pt still has post op Aquacel foam dressing and pt will have follow up with surgeon this pm to remove it. PT-OP-K Range of Motion Start: 06/26/19 16:45 Freq: Status: Active Protocol: Document 06/30/19 11:15 HH (Rec: 06/30/19 12:27 HH [email or web address]) Knee Goniometric Range of Motion Knee Right Knee ROM WFL No Patient Position Supine Flexion Active (degrees) 102 Flexion Passive (degrees) 104 Extension Active (degrees) 2 Extension Passive (degrees) 2 Left Knee ROM WFL No Patient Position Supine Flexion Active (degrees) 86 Flexion Passive (degrees) 89 Extension Active (degrees) 3 Extension Passive (degrees) 2 Knee ROM Limitations Knee ROM Limitations Pain,Swelling Comments significant pain at joint line and patellarfemoral joint with L knee flexion mild pain for R knee flexion PT-OP-M Strength Start: 06/26/19 16:45 Freq: Status: Active Protocol: Document 06/30/19 11:15 HH (Rec: 06/30/19 12:27 HH [email or web address]) Hip Strength Hip Manual Muscle Testing Right Flexion (L2) 4+ Good+ Extension (S1) 4+ Good+ Abduction 4+ Good+ Adduction 4+ Good+ Left Flexion (L2) 4 Good Extension (S1) 4 Good Abduction 4 Good Adduction 4+ Good+ Knee Strength Knee Manual Muscle Testing Right Flexion (S2) 4+ Good+ Extension (L3) 4+ Good+ Left Flexion (S2) 4 Good Extension (L3) 4 Good Reason Not Measured Pain Comments pain for both knee flexion and extension PT-OP-T Assessment and Plan Start: 06/26/19 16:45 Freq: Status: Active Protocol: Document 06/30/19 11:15 (Rec: 06/30/19 12:27 HH [email or web address]) Physical Therapy Assessment Rehab Potential Rehabilitation Potential Excellent Evaluation Complexity Number of Personal Factors/Comorbidities 1-2 Number of Body Systems Impaired 1-2 Clinical Presentation at Evaluation Stable Impairments Impairments Balance,Functional Activities, Functional Mobility,Gait,Pain, Posture,ROM,Soft Tissue Mobility,Strength,Transfers Goals HEP Impairment Pt does not ahve a HEP Short Term Goal (STG) pt will be compliant to HEP to improve her mobility and strength STG Duration 4 weeks gait Impairment pt unable to walk >1 block d/t pain Driver Medic Goal (LTG) Pt will optimize her gait pattern to improve her early heel rise and loading response by improve knee flexion so pt can amb > 3 blocks with minimal discomfort. 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 LTG Duration 8 weeks Assessment Summary Assessment This is a low complexity evaluation for this 59yo female s/p L TKA by Dr. Luz. Upon assessment, pt has limited B knee flexion L (89 degrees passively) worse than R (104 degrees passively ) but extension appears to be WFL. Pt amb with slight L circumduction with early heel rise, along with R lateral trunk lean. However, this new gait pattern is already significantly better than her preop pattern which showed excessive lateral weight shift and trendenlenbery sign. This PT did not give home ex/ self tissue mobilization since pt is going to have her post op dressing removed during follow up appt with surgeon later today. Pt will benefit from skilled physical therapy to improve her knee flexion, gait efficiency and overall endurance and strength so pt can safely return to her work as a tank builder. Physical Therapy Plan Frequency and Duration Frequency of Treatment 1x/Week Duration of Treatment 8 weeks Plan of Care Start Date 06/30/19 Plan of Care End Date 08/29/19 Therapeutic Interventions Therapeutic Interventions Balance Training,Gait Training ,Home Exercise Program,Joint Mobilizations,Manual Therapy, Neuromuscular Re-education, Patient/Caregiver Education, Self-Care/Home Management,Soft Tissue Mobilization,Taping, Therapeutic Activities, Therapeutic Exercises Modalities Cold Pack/Ice Massage,Electric Stimulation,Hot Packs Next Visit Focus/Plan Next Note Type Treatment Note Next Visit Plan check SLS STM + knee AROM hamstrings curl HEP with pictures
--- NOTE | 2019-06-30 12:27 | PT.OPPOC ---
Physical, Occupational & Speech Therapy At [facility] Current Diagnoses Unilateral primary osteoarthritis, unspecified knee (06/30/19) Visit Care Team Role Provider Type Liv Acosta DO Attending Provider Physician Primary Care Provider Referring Provider Specialty: Family Practice Address: [address] [place] [address], [address], [facility] Email: [email or web address] Plan Of Care PT-OP-T Assessment and Plan Start: 06/26/19 16:45 Freq: Status: Active Protocol: Document 06/30/19 11:15 HH (Rec: 06/30/19 12:27 HH [email or web address]) Physical Therapy Assessment Rehab Potential Rehabilitation Potential Excellent Evaluation Complexity Number of Personal Factors/Comorbidities 1-2 Number of Body Systems Impaired 1-2 Clinical Presentation at Evaluation Stable Impairments Impairments Balance,Functional Activities, Functional Mobility,Gait,Pain, Posture,ROM,Soft Tissue Mobility,Strength,Transfers Goals HEP Impairment Pt does not ahve a HEP Short Term Goal (STG) pt will be compliant to HEP to improve her mobility and strength STG Duration 4 weeks gait Impairment pt unable to walk >1 block d/t pain Assisted Goal (LTG) Pt will optimize her gait pattern to improve her early heel rise and loading response by improve knee flexion so pt can amb > 3 blocks with minimal discomfort. 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 LTG Duration 8 weeks Assessment Summary Assessment This is a low complexity evaluation for this 59yo female s/p L TKA by Dr. Luz. Upon assessment, pt has limited B knee flexion L (89 degrees passively) worse than R (104 degrees passively ) but extension appears to be WFL. Pt amb with slight L circumduction with early heel rise, along with R lateral trunk lean. However, this new gait pattern is already significantly better than her preop pattern which showed excessive lateral weight shift and trendenlenbery sign. This PT did not give home ex/ self tissue mobilization since pt is going to have her post op dressing removed during follow up appt with surgeon later today. 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 Physical Therapy Plan Frequency and Duration Frequency of Treatment 1x/Week Duration of Treatment 8 weeks Plan of Care Start Date 06/30/19 Plan of Care End Date 08/29/19 Therapeutic Interventions Therapeutic Interventions Balance Training,Gait Training ,Home Exercise Program,Joint Mobilizations,Manual Therapy, Neuromuscular Re-education, Patient/Caregiver Education, Self-Care/Home Management,Soft Tissue Mobilization,Taping, Therapeutic Activities, Therapeutic Exercises Modalities Cold Pack/Ice Massage,Electric Stimulation,Hot Packs Next Visit Focus/Plan Next Note Type Treatment Note Next Visit Plan check SLS STM + knee AROM hamstrings curl HEP with pictures Plan of Care Dates Plan of Care Start Date 06/30/19 Plan of Care End Date 08/29/19 Electronically Signed by: Dee Salcedo PT 06/30/19 [id number] Please Sign and Return: I have reviewed this Plan of Care and certify that the skilled therapy services above are required to meet the patient?s needs. Physician Signature Date Printed Name and Credentials Clinical Instructor Signature Printed Name and Credentials
--- NOTE | 2019-07-02 12:08 | PT.OTN ---
Current Diagnoses Unilateral primary osteoarthritis, unspecified knee (07/02/19) Physical Therapy Treatment Note PT-OP-A Visit Information Start: 06/26/19 16:45 Freq: Status: Active Protocol: Document 07/02/19 11:18 HH (Rec: 07/02/19 12:07 [id number]) Out-Patient Physical Therapy Visit Information Visit Information Visit Type Treatment Note Visit Start Time 11:18 Visit Stop Time 12:00 Total Visit Minutes 42 Visit Number 2/6 Number of MATERIAL CONTROL CLERK Visits 0 PT-OP-B Current Condition Start: 06/26/19 16:45 Freq: Status: Active Protocol: Document 06/30/19 11:15 HH (Rec: 06/30/19 12:27 HH [email or web address]) Current Condition History of Current Condition Onset Date 06/17/19 Current Complaints L TKA, difficulty in walking and climbing stairs History of Current Condition Pt is a 59yo female presented to clinic after her L TKA by Dr. Luz on 06/17/2019 d/t chronic knee pain >2 years. Pt stated she still have stiffness and pain at her knee cap and joint line region but she is able to amb without walker since surgery. Pt has difficulty walk more than 1 block; sitting >30 mins; standing > 15 mins. She also has trouble negotiating stairs and getting in and out of the car due to limited flexion. But she did state her gait pattern has been significantly better than before and she is very satisfied at this point. She also has chronic R knee pain and planing to have R TKA possibly later this year. 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 Treatment Goals Patient/Caregiver Goals 1. Able to walk > 1 block without pain 2. Able to return to work 8 hrs shift as a executive pastry chef without discomfort Prior Functional Status Baseline Function- ADL's Independent Baseline Function- Mobility Independent Baseline Function- Gait Pt used to walk with antalgic gait with excessive lateral weight shift. Baseline Function- Work/School Pt has difficulty standing for her entire 8 hrs shift d/t pain difficulty climbing stairs without rails. Current Functional Impairments (Reported) Functional Limitations- Work/School unable to stand >15 mins / sit >30mins Functional Limitations- Other unable to climb her step from entrance d/t pain and limited knee flexion Personal Factors Other Personal Factors That May Effect Depression Therapy/Recovery CHF PT-OP-C Subjective Start: 06/26/19 16:45 Freq: Status: Active Protocol: Document 07/02/19 11:18 HH (Rec: 07/02/19 12:07 HH [id number]) OP-PT Subjective Patient Comments Patient Comments The PA was pleased with my progress and everything looks good so far. But aniket a little sore today but dont know why. Patient Reported Progress Same PT-OP-G Mobility & Gait Start: 06/26/19 16:45 Freq: Status: Active Protocol: Document 06/30/19 11:15 HH (Rec: 06/30/19 12:27 HH [email or web address]) OP Gait Assessment Gait Gait Assistance Required: Independent Assistive Devices Assistive Device None Gait Deviations General Gait Pattern Antalgic,Decreased Stride Length,Decreased Feet Clearance Factors Limiting Gait Function Factors Limiting Gait Function Decreased Activity Tolerance, Decreased Strength,Limited Range of Motion,Pain,Poor Balance,Poor Safety Awareness Comments Gait Comments pt amb with limited knee flexion during preswing and initial swing, along with early heel rise. Pt uses a slight circumduction on LLE with full knee extension during swing phase, along with R lateral trunk lean. Stair Climbing Evaluation Devices Stair Climbing Assistive Devices Left Railing,Right Railing Technique/Endurance Stair Climbing Direction Ascend and Descend Stair Climbing Technique Step to Step PT-OP-H Neuro Start: 06/26/19 16:45 Freq: Status: Active Protocol: Document 06/30/19 11:15 HH (Rec: 06/30/19 12:27 HH [email or web address]) Deep Tendon Reflex & Clonus Assessment Deep Tendon Reflex Left Patellar Deep Tendon Reflex 2+ Normal Bilateral Achilles Deep Tendon Reflex 2+ Normal PT-OP-J Posture/Palpation/Skin Start: 06/26/19 16:45 Freq: Status: Active Protocol: Document 06/30/19 11:15 HH (Rec: 06/30/19 12:27 HH [email or web address]) Posture Evaluation Position Standing Evaluation View Anterior Weight Distribution Weight Shifted Right Skin Assessment Circumference Measurement R knee Comments above knee joint = 22inch; knee joint =20inch; tibial tub = 16.5 inch L knee Comments above knee joint= 24.5 inch; knee joint = 21inch; tibial tub = 18 inch Other Assessments Skin Assessment Comments Pt still has post op Aquacel foam dressing and pt will have follow up with surgeon this pm to remove it. PT-OP-K Range of Motion Start: 06/26/19 16:45 Freq: Status: Active Protocol: Document 06/30/19 11:15 HH (Rec: 06/30/19 12:27 [email or web address]) Knee Goniometric Range of Motion Knee Right Knee ROM WFL No Patient Position Supine Flexion Active (degrees) 102 Flexion Passive (degrees) 104 Extension Active (degrees) 2 Extension Passive (degrees) 2 Left Knee ROM WFL No Patient Position Supine Flexion Active (degrees) 86 Flexion Passive (degrees) 89 Extension Active (degrees) 3 Extension Passive (degrees) 2 Knee ROM Limitations Knee ROM Limitations Pain,Swelling Comments significant pain at joint line and patellarfemoral joint with L knee flexion mild pain for R knee flexion PT-OP-M Strength Start: 06/26/19 16:45 Freq: Status: Active Protocol: Document 06/30/19 11:15 HH (Rec: 06/30/19 12:27 [email or web address]) Hip Strength Hip Manual Muscle Testing Right Flexion (L2) 4+ Good+ Extension (S1) 4+ Good+ Abduction 4+ Good+ Adduction 4+ Good+ Left Flexion (L2) 4 Good Extension (S1) 4 Good Abduction 4 Good Adduction 4+ Good+ Knee Strength Knee Manual Muscle Testing Right Flexion (S2) 4+ Good+ Extension (L3) 4+ Good+ Left Flexion (S2) 4 Good Extension (L3) 4 Good Reason Not Measured Pain Comments pain for both knee flexion and extension PT-OP-Q Treatments Start: 06/26/19 16:45 Freq: Status: Active Protocol: Document 07/02/19 11:18 HH (Rec: 07/02/19 12:07 [email or web address]) Therapeutic Exercises Supine Exercises supine heel slide Supine Exercise Name towel for sliding Side left Reps/Minutes 8 x2 supine TKE Supine Exercise Name towel underneath ankle Side left Reps/Minutes 8 x2 Prone Exercises hamstring curl Side left Reps/Minutes 8 x2 Standing Exercises high knee walking Side bilateral Reps/Minutes 10 mins Comments attempted to use hurdles but pt shows compensatory lateral trunk flexion Manual Therapy Treatment Soft Tissue Mobilization scar mob Mobilization Type Cross-Friction,Instrument Assisted Intensity/Depth Moderate Body Position Supine Quad Body Location towel underneath knee Mobilization Type Rolling,Sustained Pressure, Trigger Point Release Intensity/Depth Moderate Body Position Supine PT-OP-T Assessment and Plan Start: 06/26/19 16:45 Freq: Status: Active Protocol: Document 07/02/19 11:18 (Rec: 07/02/19 12:07 [id number]) Physical Therapy Assessment Goals HEP Impairment Pt does not ahve a HEP Short Term Goal (STG) pt will be compliant to HEP to improve her mobility and strength STG Duration 4 weeks gait Impairment pt unable to walk >1 block d/t pain Flat Sorter Processor Goal (LTG) Pt will optimize her gait pattern to improve her early heel rise and loading response by improve knee flexion so pt can amb > 3 blocks with minimal discomfort. LTG Duration 8 weeks stair climbing Impairment Pt has limited knee flexion and strength Short Term Goal (STG) Pt will reach knee flexion > 100 degrees actively STG Duration 4 weeks Flat Sorter Processor Goal (LTG) Pt will be able to reach B knee flexion >110 degrees so she could use her threshold step to enter front entrance without rails independently LTG Duration 8 weeks LEFS Impairment Pt scores 27 on LEFS Penitentiary Goal (LTG) pt will score >48 on LEFS to improve her functional mobility and strength so pt can return to work as a executive pastry chef with minimal discomfort. LTG Duration 8 weeks Assessment Summary Assessment Pt wears tight jeans today and was difficulty for this PT to perform manual therapy on quad. Tx focused on Knee ROM exercises gait training. Pt has very poor body awareness and understanding learning gait pattern. Pt needs constant verbal and tactile cues to prevent lateral trunk flexion during LLE swing phase .
--- NOTE | 2019-07-07 16:23 | PT.OTN ---
Current Diagnoses Unilateral primary osteoarthritis, unspecified knee (07/02/19) Physical Therapy Treatment Note PT-OP-T Assessment and Plan Start: 06/26/19 16:45 Freq: Status: Active Protocol: Document 07/07/19 16:21 HH (Rec: 07/07/19 16:23 HH [email or web address]) Physical Therapy Plan Hold Physical Therapy Reason For Hold Pt no show today. Contact her via phone who reports she has a cold. Hold PT since this clinic will close from tomorrow until further notice d/t coronavirus. Provided online HEP for pt today to improve functional mobility and strength. Will follow up after with pt via phone for check up.
--- NOTE | 2019-08-17 15:18 | PT-OP ANOTE ---
This PT clinic has been closed since 07/07 d/t coronavirus pademic. Contacted pt via phone 08/12/19, pt would like to continue therapy service to improve her knee mobility and strength since she still has difficulty negotiating stairs. Reminded pt will have to follow CDC guidelines to wear mask, wash hands frequently and maintain social distancing during visits.
--- NOTE | 2019-08-30 13:27 | PT.OPPOC ---
Physical, Occupational & Speech Therapy At [facility] Current Diagnoses Unilateral primary osteoarthritis, unspecified knee (08/27/19) Visit Care Team Role Provider Type Liv Acosta DO Attending Provider Physician Primary Care Provider Referring Provider Specialty: Family Practice Address: [address] [place] [address], [address], [facility] Email: [email or web address] Plan Of Care PT-OP-T Assessment and Plan Start: 06/26/19 16:45 Freq: Status: Active Protocol: Document 08/27/19 16:01 (Rec: 08/30/19 13:26 [email or web address]) Physical Therapy Assessment Rehab Potential Rehabilitation Potential Good Impairments Impairments Activity Tolerance,Balance, Functional Activities, Functional Mobility,Gait,Pain, Posture,ROM,Soft Tissue Mobility,Strength Goals kneeling/ getting out of low surface Impairment reports difficulty/ pain getting up from low surface/ kneeling Product Evangelist Goal (LTG) Pt will improve her overall hip and knee ROM and strength in order to get up from her toilet/ kneeling position without UE support/ pain LTG Duration 8 weeks HEP Impairment Pt does not ahve a HEP Short Term Goal (STG) 08/26 cont in progress, Pt has not been as compliant recently due to start of her job. pt will be compliant to HEP to improve her mobility and strength STG Duration 4 weeks gait Impairment pt unable to walk >1 block d/t pain Half-Way Goal (LTG) 514 cont in progress. Pt currently able to work 32 hrs/ week. Pt will optimize her gait pattern to improve her early heel rise and loading response by improve knee flexion so pt can amb > 3 blocks with minimal discomfort. 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 LTG Duration 8 weeks Progress Towards Goals Progress Towards Goals Progressing Toward Goals,Slow Progress due to Medical Issues ,Slow Progress due to Noncompliance,Slow Progress - Other Assessment Summary Assessment Patient is a 59 yo female who had left knee replacement about 10 weeks ago. Her last visit was 07/06 due to clinic closure from aguirre virus epidemic. Pt currently returns to work for 32hrs per week. Her gait and ROM overall have improved but still has pain and difficulty negotiating stairs and getting up from low surface level. Pt did do HEP on her own but reported not as compliant as she wanted to be. She also reports her right knee hurts more and more and there's noticeable decreased in ROM from initial evaluation. She has been taking 4 tabs of 10 mg oxycodone daily for her pain. Spend time on reassessment today and updated her current HEP to focus on anterior line mobility and neuromuscular control of the quads to improve knee flexion and opmitize her heel strike, along with single leg balance. Also educated pt to participate weight loss program to reduce mechanical stress and joints. Pt will cont benefit from skilled therapy to improve her overall mobiltiy and strength so she could fully return to her physical demanding job in pain free. Physical Therapy Plan Frequency and Duration Frequency of Treatment 2x/Week Duration of Treatment 8 weeks Plan of Care Start Date 08/27/19 Plan of Care End Date 10/29/19 Therapeutic Interventions Therapeutic Interventions Balance Training,Gait Training ,Home Exercise Program,Joint Mobilizations,Manual Therapy, Neuromuscular Re-education, Patient/Caregiver Education, Self-Care/Home Management,Soft Tissue Mobilization,Taping, Therapeutic Activities, Therapeutic Exercises Modalities Cold Pack/Ice Massage,Electric Stimulation,Hot Packs, Infrared Therapy,Ultrasound Next Visit Focus/Plan Next Note Type Treatment Note Next Visit Plan manual therapy for anterior line flexiblity joint mob for flexion and extension then startwith backward and forward biking balance work single leg strengthening. Plan of Care Dates Plan of Care Start Date 08/27/19 Plan of Care End Date 10/29/19 Electronically Signed by: Dee Salcedo, PT 08/30/19 1905 Please Sign and Return: I have reviewed this Plan of Care and certify that the skilled therapy services above are required to meet the patient?s needs. Physician Signature Date Printed Name and Credentials Clinical Instructor Signature Printed Name and Credentials
--- NOTE | 2019-08-30 13:28 | PT.OTN ---
Current Diagnoses Unilateral primary osteoarthritis, unspecified knee (08/27/19) Physical Therapy Treatment Note PT-OP-A Visit Information Start: 06/26/19 16:45 Freq: Status: Active Protocol: Document 08/27/19 16:01 HH (Rec: 08/30/19 13:26 [email or web address]) Out-Patient Physical Therapy Visit Information Visit Information Visit Type Progress Note Visit Note Last visit =07/06 due to clinic closure from aguirre virus epidemic Visit Start Time 16:01 Visit Stop Time 16:45 Total Visit Minutes 44 Visit Number 06/18 Number of HEAD IRRIGATOR Visits 0 PT-OP-B Current Condition Start: 06/26/19 16:45 Freq: Status: Active Protocol: Document 06/30/19 11:15 HH (Rec: 06/30/19 12:27 HH [email or web address]) Current Condition History of Current Condition Onset Date 06/17/19 Current Complaints L TKA, difficulty in walking and climbing stairs History of Current Condition Pt is a 59yo female presented to clinic after her L TKA by Dr. Luz on 06/17/2019 d/t chronic knee pain >2 years. Pt stated she still have stiffness and pain at her knee cap and joint line region but she is able to amb without walker since surgery. Pt has difficulty walk more than 1 block; sitting >30 mins; standing > 15 mins. She also has trouble negotiating stairs and getting in and out of the car due to limited flexion. But she did state her gait pattern has been significantly better than before and she is very satisfied at this point. She also has chronic R knee pain and planing to have R TKA possibly later this year. 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 Treatment Goals Patient/Caregiver Goals 1. Able to walk > 1 block without pain 2. Able to return to work 8 hrs shift as a pizza chef without discomfort Prior Functional Status Baseline Function- ADL's Independent Baseline Function- Mobility Independent Baseline Function- Gait Pt used to walk with antalgic gait with excessive lateral weight shift. Baseline Function- Work/School Pt has difficulty standing for her entire 8 hrs shift d/t pain difficulty climbing stairs without rails. Current Functional Impairments (Reported) Functional Limitations- Work/School unable to stand >15 mins / sit >30mins Functional Limitations- Other unable to climb her step from entrance d/t pain and limited knee flexion Personal Factors Other Personal Factors That May Effect Depression Therapy/Recovery CHF PT-OP-C Subjective Start: 06/26/19 16:45 Freq: Status: Active Protocol: Document 08/27/19 16:01 HH (Rec: 08/30/19 13:26 [email or web address]) OP-PT Subjective Patient Comments Patient Comments Keira been walking much better and able to return to work 32hrs/week. I havent been doing my exercises and i ahve difficulty doing stairs. In fact, my R knee bothers me more now. Patient Reported Progress Improving PT-OP-G Mobility & Gait Start: 06/26/19 16:45 Freq: Status: Active Protocol: Document 08/27/19 16:01 HH (Rec: 08/30/19 13:26 [email or web address]) OP Gait Assessment Factors Limiting Gait Function Factors Limiting Gait Function Decreased Activity Tolerance, Decreased Strength,Limited Range of Motion,Pain,Poor Balance Comments Gait Comments Pt presents improved lateral trunk lean but still demonstrates lateral instability during stance phase. Pt also presents lack of L heel strike and knee extension during initial contact and early heel rise at pre swing. Stair Climbing Evaluation Comments Stair Climbing Comments Needed unilateral/ bilateral support from rails for stair climbing. Noticeable slight hip ER/ abd during ascend due to lack of knee flexion bilaterally PT-OP-H Neuro Start: 06/26/19 16:45 Freq: Status: Active Protocol: Document 06/30/19 11:15 HH (Rec: 06/30/19 12:27 [email or web address]) Deep Tendon Reflex & Clonus Assessment Deep Tendon Reflex Left Patellar Deep Tendon Reflex 2+ Normal Bilateral Achilles Deep Tendon Reflex 2+ Normal PT-OP-J Posture/Palpation/Skin Start: 06/26/19 16:45 Freq: Status: Active Protocol: Document 06/30/19 11:15 HH (Rec: 06/30/19 12:27 HH [email or web address]) Posture Evaluation Position Standing Evaluation View Anterior Weight Distribution Weight Shifted Right Skin Assessment Circumference Measurement R knee Comments above knee joint = 22inch; knee joint =20inch; tibial tub = 16.5 inch L knee Comments above knee joint= 24.5 inch; knee joint = 21inch; tibial tub = 18 inch Other Assessments Skin Assessment Comments Pt still has post op Aquacel foam dressing and pt will have follow up with surgeon this pm to remove it. PT-OP-K Range of Motion Start: 06/26/19 16:45 Freq: Status: Active Protocol: Document 08/27/19 16:01 (Rec: 08/30/19 13:26 [email or web address]) Knee Goniometric Range of Motion Knee Right Knee ROM WFL No Patient Position Supine Flexion Active (degrees) 100 Extension Active (degrees) 2 Left Knee ROM WFL No Patient Position Supine Flexion Active (degrees) 105 Extension Active (degrees) 3 Knee ROM Limitations Knee ROM Limitations Soft Tissue Tightness,Pain PT-OP-M Strength Start: 06/26/19 16:45 Freq: Status: Active Protocol: Document 08/27/19 16:01 (Rec: 08/30/19 13:26 [email or web address]) Knee Strength Knee Manual Muscle Testing Right Flexion (S2) 4+ Good+ Extension (L3) 4+ Good+ Left Flexion (S2) 4+ Good+ Extension (L3) 4+ Good+ PT-OP-Q Treatments Start: 06/26/19 16:45 Freq: Status: Active Protocol: Document 08/27/19 16:01 (Rec: 08/30/19 13:26 [email or web address]) Therapeutic Exercises Supine Exercises supine heel slide Supine Exercise Name towel for sliding Side left Reps/Minutes 8 x2 Prone Exercises prone quad stretch Side bilateral Equipment Used gait belt Reps/Minutes 30 sec x 5 Comments for home HEP Standing Exercises heel toe gait Standing Exercise Name semi tandem, for HEP Side bilateral Reps/Minutes next to grab bar Comments facilitate heel strike standing weight shift Standing Exercise Name sagittal plane Side bilateral Reps/Minutes 6 mins Comments weight shift ant/ post for HEP Self-Care/Home Management Treatment Education Patient Education Body Mechanics,Home Exercise Program,Joint Protection,Pain Management,Posture,Safety Other Education Education on initiating a daily walking program with her dog, participating weight loss program ([facility]) to reduce mechanical stress on joints. Cont participating HEP to improve mobility and strength. PT-OP-T Assessment and Plan Start: 06/26/19 16:45 Freq: Status: Active Protocol: Document 08/27/19 16:01 (Rec: 08/30/19 13:26 [email or web address]) Physical Therapy Assessment Rehab Potential Rehabilitation Potential Good Impairments Impairments Activity Tolerance,Balance, Functional Activities, Functional Mobility,Gait,Pain, Posture,ROM,Soft Tissue Mobility,Strength Goals kneeling/ getting out of low surface Impairment reports difficulty/ pain getting up from low surface/ kneeling Half-Way Goal (LTG) Pt will improve her overall hip and knee ROM and strength in order to get up from her toilet/ kneeling position without UE support/ pain LTG Duration 8 weeks HEP Impairment Pt does not ahve a HEP Short Term Goal (STG) 08/26 cont in progress, Pt has not been as compliant recently due to start of her job. pt will be compliant to HEP to improve her mobility and strength STG Duration 4 weeks gait Impairment pt unable to walk >1 block d/t pain Public Relations Supervisor Goal (LTG) 08/26 cont in progress. Pt currently able to work 32 hrs/ week. Pt will optimize her gait pattern to improve her early heel rise and loading response by improve knee flexion so pt can amb > 3 blocks with minimal discomfort. 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 LTG Duration 8 weeks Progress Towards Goals Progress Towards Goals Progressing Toward Goals,Slow Progress due to Medical Issues ,Slow Progress due to Noncompliance,Slow Progress - Other Assessment Summary Assessment Patient is a 59 yo female who had left knee replacement about 10 weeks ago. Her last visit was 07/06 due to clinic closure from aguirre virus epidemic. Pt currently returns to work for 32hrs per week. Her gait and ROM overall have improved but still has pain and difficulty negotiating stairs and getting up from low surface level. Pt did do HEP on her own but reported not as compliant as she wanted to be. She also reports her right knee hurts more and more and there's noticeable decreased in ROM from initial evaluation. She has been taking 4 tabs of 10 mg oxycodone daily for her pain. Spend time on reassessment today and updated her current HEP to focus on anterior line mobility and neuromuscular control of the quads to improve knee flexion and opmitize her heel strike, along with single leg balance. Also educated pt to participate weight loss program to reduce mechanical stress and joints. Pt will cont benefit from skilled therapy to improve her overall mobiltiy and strength so she could fully return to her physical demanding job in pain free. Physical Therapy Plan Frequency and Duration Frequency of Treatment 2x/Week Duration of Treatment 8 weeks Plan of Care Start Date 08/27/19 Plan of Care End Date 10/29/19 Therapeutic Interventions Therapeutic Interventions Balance Training,Gait Training ,Home Exercise Program,Joint Mobilizations,Manual Therapy, Neuromuscular Re-education, Patient/Caregiver Education, Self-Care/Home Management,Soft Tissue Mobilization,Taping, Therapeutic Activities, Therapeutic Exercises Modalities Cold Pack/Ice Massage,Electric Stimulation,Hot Packs, Infrared Therapy,Ultrasound Next Visit Focus/Plan Next Note Type Treatment Note Next Visit Plan manual therapy for anterior line flexiblity joint mob for flexion and extension then startwith backward and forward biking balance work single leg strengthening.
--- NOTE | 2019-09-01 13:01 | PT.OTN ---
Current Diagnoses Unilateral primary osteoarthritis, unspecified knee (09/01/19) Physical Therapy Treatment Note PT-OP-A Visit Information Start: 06/26/19 16:45 Freq: Status: Active Protocol: Document 09/01/19 11:16 HH (Rec: 09/01/19 13:00 HH [email or web address]) Out-Patient Physical Therapy Visit Information Visit Information Visit Type Treatment Note Visit Start Time 11:16 Visit Stop Time 12:02 Total Visit Minutes 46 Visit Number 4/6 Number of CONSULTING DATABASE ADMINISTRATOR Visits 0 PT-OP-B Current Condition Start: 06/26/19 16:45 Freq: Status: Active Protocol: Document 06/30/19 11:15 HH (Rec: 06/30/19 12:27 HH [email or web address]) Current Condition History of Current Condition Onset Date 06/17/19 Current Complaints L TKA, difficulty in walking and climbing stairs History of Current Condition Pt is a 59yo female presented to clinic after her L TKA by Dr. Luz on 06/17/2019 d/t chronic knee pain >2 years. Pt stated she still have stiffness and pain at her knee cap and joint line region but she is able to amb without walker since surgery. Pt has difficulty walk more than 1 block; sitting >30 mins; standing > 15 mins. She also has trouble negotiating stairs and getting in and out of the car due to limited flexion. But she did state her gait pattern has been significantly better than before and she is very satisfied at this point. She also has chronic R knee pain and planing to have R TKA possibly later this year. 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 Treatment Goals Patient/Caregiver Goals 1. Able to walk > 1 block without pain 2. Able to return to work 8 hrs shift as a chef teacher without discomfort Prior Functional Status Baseline Function- ADL's Independent Baseline Function- Mobility Independent Baseline Function- Gait Pt used to walk with antalgic gait with excessive lateral weight shift. Baseline Function- Work/School Pt has difficulty standing for her entire 8 hrs shift d/t pain difficulty climbing stairs without rails. Current Functional Impairments (Reported) Functional Limitations- Work/School unable to stand >15 mins / sit >30mins Functional Limitations- Other unable to climb her step from entrance d/t pain and limited knee flexion Personal Factors Other Personal Factors That May Effect Depression Therapy/Recovery CHF PT-OP-C Subjective Start: 06/26/19 16:45 Freq: Status: Active Protocol: Document 09/01/19 11:16 HH (Rec: 09/01/19 13:00 HH [email or web address]) OP-PT Subjective Patient Comments Patient Comments Keira been practing with my ex and im walking better i think. Patient Reported Progress Improving PT-OP-G Mobility & Gait Start: 06/26/19 16:45 Freq: Status: Active Protocol: Document 08/27/19 16:01 HH (Rec: 08/30/19 13:26 HH [email or web address]) OP Gait Assessment Factors Limiting Gait Function Factors Limiting Gait Function Decreased Activity Tolerance, Decreased Strength,Limited Range of Motion,Pain,Poor Balance Comments Gait Comments Pt presents improved lateral trunk lean but still demonstrates lateral instability during stance phase. Pt also presents lack of L heel strike and knee extension during initial contact and early heel rise at pre swing. Stair Climbing Evaluation Comments Stair Climbing Comments Needed unilateral/ bilateral support from rails for stair climbing. Noticeable slight hip ER/ abd during ascend due to lack of knee flexion bilaterally PT-OP-H Neuro Start: 06/26/19 16:45 Freq: Status: Active Protocol: Document 06/30/19 11:15 HH (Rec: 06/30/19 12:27 HH [email or web address]) Deep Tendon Reflex & Clonus Assessment Deep Tendon Reflex Left Patellar Deep Tendon Reflex 2+ Normal Bilateral Achilles Deep Tendon Reflex 2+ Normal PT-OP-J Posture/Palpation/Skin Start: 06/26/19 16:45 Freq: Status: Active Protocol: Document 06/30/19 11:15 HH (Rec: 06/30/19 12:27 HH [email or web address]) Posture Evaluation Position Standing Evaluation View Anterior Weight Distribution Weight Shifted Right Skin Assessment Circumference Measurement R knee Comments above knee joint = 22inch; knee joint =20inch; tibial tub = 16.5 inch L knee Comments above knee joint= 24.5 inch; knee joint = 21inch; tibial tub = 18 inch Other Assessments Skin Assessment Comments Pt still has post op Aquacel foam dressing and pt will have follow up with surgeon this pm to remove it. PT-OP-K Range of Motion Start: 06/26/19 16:45 Freq: Status: Active Protocol: Document 08/27/19 16:01 HH (Rec: 08/30/19 13:26 [email or web address]) Knee Goniometric Range of Motion Knee Right Knee ROM WFL No Patient Position Supine Flexion Active (degrees) 100 Extension Active (degrees) 2 Left Knee ROM WFL No Patient Position Supine Flexion Active (degrees) 105 Extension Active (degrees) 3 Knee ROM Limitations Knee ROM Limitations Soft Tissue Tightness,Pain PT-OP-M Strength Start: 06/26/19 16:45 Freq: Status: Active Protocol: Document 08/27/19 16:01 (Rec: 08/30/19 13:26 [email or web address]) Knee Strength Knee Manual Muscle Testing Right Flexion (S2) 4+ Good+ Extension (L3) 4+ Good+ Left Flexion (S2) 4+ Good+ Extension (L3) 4+ Good+ PT-OP-Q Treatments Start: 06/26/19 16:45 Freq: Status: Active Protocol: Document 09/01/19 11:16 (Rec: 09/01/19 13:00 [email or web address]) Cardio Equipment Recumbent Bicycle Duration (Minutes) 8 Resistance 7 Seat Position 7 Other 4mins forwards, 4 mins backward Therapeutic Exercises Supine Exercises hip flexor stretch Side bilateral Reps/Minutes 20 secs hold x 5 Prone Exercises prone quad stretch Side bilateral Equipment Used gait belt Reps/Minutes 30 sec x 5 Comments for home HEP hamstring curl Side bilateral Reps/Minutes 8 x2 Comments for HEP Standing Exercises heel toe gait Standing Exercise Name semi tandem, for HEP Side bilateral Reps/Minutes next to grab bar Comments facilitate heel strike standing weight shift Standing Exercise Name lunge position Side bilateral Reps/Minutes 10 mins Comments weight shift ant/ post for HEP high knee walking Side bilateral Reps/Minutes 10 mins Comments attempted to use hurdles but pt shows compensatory lateral trunk flexion Manual Therapy Treatment Soft Tissue Mobilization Quad Body Location towel underneath knee Mobilization Type Rolling,Sustained Pressure, Trigger Point Release Intensity/Depth Moderate Body Position Supine Joint Mobilizations tibial ER/IR Grade III Body Position Prone Comments tibial ER with knee ext tibial IR with knee flexion PT-OP-T Assessment and Plan Start: 06/26/19 16:45 Freq: Status: Active Protocol: Document 09/01/19 11:16 (Rec: 09/01/19 13:00 [email or web address]) Physical Therapy Assessment Goals kneeling/ getting out of low surface Impairment reports difficulty/ pain getting up from low surface/ kneeling Babbitter Goal (LTG) Pt will improve her overall hip and knee ROM and strength in order to get up from her toilet/ kneeling position without UE support/ pain LTG Duration 8 weeks HEP Impairment Pt does not ahve a HEP Short Term Goal (STG) 08/26 cont in progress, Pt has not been as compliant recently due to start of her job. pt will be compliant to HEP to improve her mobility and strength STG Duration 4 weeks gait Impairment pt unable to walk >1 block d/t pain Snf Goal (LTG) 08/26 cont in progress. Pt currently able to work 32 hrs/ week. Pt will optimize her gait pattern to improve her early heel rise and loading response by improve knee flexion so pt can amb > 3 blocks with minimal discomfort. LTG Duration 8 weeks stair climbing Impairment Pt has limited knee flexion and strength Short Term Goal (STG) 08/26 goal met L=105, R = 102 Pt will reach knee flexion > 100 degrees actively STG Duration 4 weeks Snf Goal (LTG) Pt will be able to reach B knee flexion >110 degrees so she could use her threshold step to enter front entrance without rails independently LTG Duration 8 weeks LEFS Impairment Pt scores 27 on LEFS Babbitter Goal (LTG) pt will score >48 on LEFS to improve her functional mobility and strength so pt can return to work as a chef teacher with minimal discomfort. LTG Duration 8 weeks Assessment Summary Assessment Started with manual therapy on quad and hip flexor release followed by stretching, significant limited mobility on R side> L. Pt's gait also demonstrated limited knee flexion during swing phase, but her gait was improved after biking, standing weight shift in lunge position and standing knee flexion. Will cont to focus on improving knee and hip ROM and gait training. Physical Therapy Plan Next Visit Focus/Plan Next Note Type Treatment Note Next Visit Plan manual therapy for anterior line flexiblity joint mob for flexion and extension then startwith backward and forward biking balance work gait training with swing phase single leg strengthening.
--- NOTE | 2019-09-30 16:52 | PT.OPDS ---
Current Diagnoses Unilateral primary osteoarthritis, unspecified knee (09/30/19) Visit Care Team Role Provider Type Liv Acosta DO Attending Provider Physician Primary Care Provider Referring Provider Specialty: [facility] Address: [address] [place] [address], [address], [place], [address] Email: [email or web address] Visit Number Visit Number 08/18 Discharge Summary PT-OP-B Current Condition Start: 06/26/19 16:45 Freq: Status: Active Protocol: Document 06/30/19 11:15 HH (Rec: 06/30/19 12:27 HH [email or web address]) Current Condition History of Current Condition Onset Date 06/17/19 Current Complaints L TKA, difficulty in walking and climbing stairs History of Current Condition Pt is a 59yo female presented to clinic after her L TKA by Dr. Luz on 06/17/2019 d/t chronic knee pain >2 years. Pt stated she still have stiffness and pain at her knee cap and joint line region but she is able to amb without walker since surgery. Pt has difficulty walk more than 1 block; sitting >30 mins; standing > 15 mins. She also has trouble negotiating stairs and getting in and out of the car due to limited flexion. But she did state her gait pattern has been significantly better than before and she is very satisfied at this point. She also has chronic R knee pain and planing to have R TKA possibly later this year. 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 Treatment Goals Patient/Caregiver Goals 1. Able to walk > 1 block without pain 2. Able to return to work 8 hrs shift as a chef teacher without discomfort Prior Functional Status Baseline Function- ADL's Independent Baseline Function- Mobility Independent Baseline Function- Gait Pt used to walk with antalgic gait with excessive lateral weight shift. Baseline Function- Work/School Pt has difficulty standing for her entire 8 hrs shift d/t pain difficulty climbing stairs without rails. Current Functional Impairments (Reported) Functional Limitations- Work/School unable to stand >15 mins / sit >30mins Functional Limitations- Other unable to climb her step from entrance d/t pain and limited knee flexion Personal Factors Other Personal Factors That May Effect Depression Therapy/Recovery CHF PT-OP-C Subjective Start: 06/26/19 16:45 Freq: Status: Active Protocol: Document 09/30/19 16:45 HH (Rec: 09/30/19 16:52 HH [id number]) OP-PT Subjective Patient Comments Patient Comments My left knee has been doing good but R knee starts to hurt more. Keira been able to return 40 hours working schedule Patient Reported Progress Improving PT-OP-G Mobility & Gait Start: 06/26/19 16:45 Freq: Status: Active Protocol: Document 08/27/19 16:01 HH (Rec: 08/30/19 13:26 HH [email or web address]) OP Gait Assessment Factors Limiting Gait Function Factors Limiting Gait Function Decreased Activity Tolerance, Decreased Strength,Limited Range of Motion,Pain,Poor Balance Comments Gait Comments Pt presents improved lateral trunk lean but still demonstrates lateral instability during stance phase. Pt also presents lack of L heel strike and knee extension during initial contact and early heel rise at pre swing. Stair Climbing Evaluation Comments Stair Climbing Comments Needed unilateral/ bilateral support from rails for stair climbing. Noticeable slight hip ER/ abd during ascend due to lack of knee flexion bilaterally PT-OP-H Neuro Start: 06/26/19 16:45 Freq: Status: Active Protocol: Document 06/30/19 11:15 HH (Rec: 06/30/19 12:27 HH [email or web address]) Deep Tendon Reflex & Clonus Assessment Deep Tendon Reflex Left Patellar Deep Tendon Reflex 2+ Normal Bilateral Achilles Deep Tendon Reflex 2+ Normal PT-OP-J Posture/Palpation/Skin Start: 06/26/19 16:45 Freq: Status: Active Protocol: Document 06/30/19 11:15 HH (Rec: 06/30/19 12:27 HH [email or web address]) Posture Evaluation Position Standing Evaluation View Anterior Weight Distribution Weight Shifted Right Skin Assessment Circumference Measurement R knee Comments above knee joint = 22inch; knee joint =20inch; tibial tub = 16.5 inch L knee Comments above knee joint= 24.5 inch; knee joint = 21inch; tibial tub = 18 inch Other Assessments Skin Assessment Comments Pt still has post op Aquacel foam dressing and pt will have follow up with surgeon this pm to remove it. PT-OP-K Range of Motion Start: 06/26/19 16:45 Freq: Status: Active Protocol: Document 08/27/19 16:01 HH (Rec: 08/30/19 13:26 [email or web address]) Knee Goniometric Range of Motion Knee Right Knee ROM WFL No Patient Position Supine Flexion Active (degrees) 100 Extension Active (degrees) 2 Left Knee ROM WFL No Patient Position Supine Flexion Active (degrees) 105 Extension Active (degrees) 3 Knee ROM Limitations Knee ROM Limitations Soft Tissue Tightness,Pain PT-OP-M Strength Start: 06/26/19 16:45 Freq: Status: Active Protocol: Document 08/27/19 16:01 (Rec: 08/30/19 13:26 [email or web address]) Knee Strength Knee Manual Muscle Testing Right Flexion (S2) 4+ Good+ Extension (L3) 4+ Good+ Left Flexion (S2) 4+ Good+ Extension (L3) 4+ Good+ PT-OP-T Assessment and Plan Start: 06/26/19 16:45 Freq: Status: Active Protocol: Document 09/30/19 16:45 (Rec: 09/30/19 16:52 [id number]) Physical Therapy Assessment Goals kneeling/ getting out of low surface Impairment reports difficulty/ pain getting up from low surface/ kneeling Care Home Goal (LTG) 09/29 goal met no pain noted for transfer activities. LTG Duration 8 weeks HEP Impairment Pt does not ahve a HEP Short Term Goal (STG) 09/29 cont in progress, Pt has not been as compliant recently due to start of her job. gait Impairment pt unable to walk >1 block d/t pain Interior Designer Goal (LTG) 09/29 cont in progress. Pt currently able to work 40 hrs/ week. stair climbing Impairment Pt has limited knee flexion and strength Short Term Goal (STG) 09/29 goal met with full ROM on L knee Progress Towards Goals Progress Towards Goals Goals Met Assessment Summary Assessment Pt's L knee ROM ,strength and overall stability have met her rehab goals. Pt currently is able to work 40 hrs without c/ o discomfort. Pt also has improved single leg stance on LLE up to 8s. Pt does have increased R knee pain lately and noticed decreased ROM. Recommended pt to get referral for from MD to address her R knee pain. Physical Therapy Plan Discharge Physical Therapy Discharge Reasons Goals Met Discharge Comments see assessment
== END 2019-10-06 12:04 ==
LOC: PHYS 15:15
PROVIDERS: PCP Family Medicine; Referring Provider Family Medicine; Visit Provider Family Medicine
DX: M17.10 Unilateral primary osteoarthritis, unspecified knee (principal)
CPT/HCPCS: 95851; 97110; 97140; 97161; 97535

== ENCOUNTER → 2019-11-23 15:09 | Outpatient (CLI) | payer OTHER, SELFPAY ==
[2019-11-18 10:50] VITALS: BMI 41.9
--- NOTE | 2019-11-23 15:11 | DI.RAD.S_ITS ---
PROCEDURE: XR LUMBAR SPINE 2-3V INDICATIONS: posterior back pain TECHNIQUE: 3 views of the lumbar spine were acquired. COMPARISON: None. FINDINGS: Bones: 5 [id number] vertebrae are present. Grade 1 spondylolisthesis at the L4-L5 level. Severe L4-L5 and L5-S1 disc degeneration and facet joint arthropathy. No vertebral body compression fractures. No suspicious bony lesions. Soft tissues: Overlying bowel gas pattern is normal. No suspicious soft tissue calcifications. IMPRESSION: 1. Grade 1 spondylolisthesis L4-L5. 2. Severe L4-L5 and L5-S1 disc degeneration and facet joint arthropathy. Dictated by: Louis Tellez [facility] Interpreted: Juan Flannery MD on 11/23/2019 at 16:16 Approved by: Juan Flannery M.D. on 11/23/2019 at 17:40
--- NOTE | 2019-11-23 15:11 | DI.RAD.S_ITS ---
PROCEDURE: XR THORACIC SPINE 3V INDICATIONS: posterior back pain TECHNIQUE: 3 views of the thoracic spine were acquired. COMPARISON: None. FINDINGS: Bones: No fracture. Diffuse spondylitic changes Soft tissues: No paravertebral stripe thickening. IMPRESSION: No fracture Dictated by: Arsenio Gao M.D. on 11/23/2019 at 17:00 Approved by: Arsenio Gao M.D. on 11/23/2019 at 17:02
== END ==
PROVIDERS: PCP Family Medicine; Referring Provider Family Medicine; Visit Provider Family Medicine
DX: M54.9 Dorsalgia, unspecified (principal); M47.816 Spondylosis without myelopathy or radiculopathy, lumbar region; M47.817 Spondylosis without myelopathy or radiculopathy, lumbosacral region; M51.36 Other intervertebral disc degeneration, lumbar region; M51.37 Other intervertebral disc degeneration, lumbosacral region; M43.16 Spondylolisthesis, lumbar region
CPT/HCPCS: 72072; 72100

== ENCOUNTER → 2020-01-19 | Outpatient (CLI) | payer OTHER, SELFPAY ==
[2019-11-18 10:50] VITALS: BMI 41.9
== END ==
PROVIDERS: PCP Family Medicine; Referring Provider Internal Medicine; Visit Provider Internal Medicine
DX: Z23 Encounter for immunization (principal)
CPT/HCPCS: 90471; 90686

== ENCOUNTER → 2020-03-24 11:12 | Outpatient (CLI) | payer OTHER, SELFPAY ==
[2019-11-18 10:50] VITALS: BMI 41.9
[2020-03-24 12:11] LABS: Hemoglobin A1C% w Est Avg Glu 6.2 % (4.0-6.0)
== END ==
PROVIDERS: PCP Family Medicine; Referring Provider Family Medicine; Visit Provider Family Medicine
DX: Z13.1 Encounter for screening for diabetes mellitus (principal)
CPT/HCPCS: 36415; 83036

== ENCOUNTER → 2020-04-04 08:43 | Outpatient (CLI) | payer OTHER, SELFPAY ==
[2019-11-18 10:50] VITALS: BMI 41.9
[2020-04-04 11:18] LABS: Creatinine Urine Random 161.2 mg/dL
[2020-04-04 11:23] LABS: Microalbumi Creatinin Ratio Ur 6.8 ug/mg CR (<30); Microalbumin Urine Random 1.1 mg/dL (0-1.6)
[2020-04-04 11:24] LABS: Alanine Aminotransferase 17 IU/L (<35); Albumin 4.2 g/dL (3.5-5.0); Albumin Globulin Ratio 1.6 (1.0-2.8); Alkaline Phosphatase 71 U/L (38-126); Aspartate Aminotransferase 19 IU/L (14-36); Bilirubin Total 0.4 mg/dL (0.2-1.3); Blood Urea Nitrogen 19 mg/dL (7-17); Calcium 9.1 mg/dL (8.4-10.2); Carbon Dioxide 32 mmol/L (22-32); Chloride 105 mmol/L (98-107); Cholesterol 206 mg/dL (140-199); Estimated Glomerular Filt Rate > 60.0 mL/min (>60); Globulin 2.6 g/dL (1.7-4.1); Glucose 108 mg/dL (70-100); HDL Cholesterol 54 mg/dL (40-60); HEMOLYSIS < 15 (0-50); LDL Cholesterol Calculated 119 mg/dL (<100); Potassium 4.6 mmol/L (3.4-5.1); Sodium 139 mmol/L (137-145); Total Protein 6.8 g/dL (6.3-8.2); Triglycerides 163 mg/dL (35-150)
[2020-04-04 11:52] LABS: TSH w/ Reflex to FT4 5.51 uIU/mL (0.47-4.68)
[2020-04-04 12:17] LABS: Free T4, Direct Thyroxine 1.26 ng/dL (0.78-2.19)
== END ==
PROVIDERS: PCP Family Medicine; Referring Provider Family Medicine; Visit Provider Family Medicine
DX: I10 Essential (primary) hypertension (principal); M17.11 Unilateral primary osteoarthritis, right knee; E66.01 Morbid (severe) obesity due to excess calories; Z68.41 Body mass index [BMI] 40.0-44.9, adult; F32.5 Major depressive disorder, single episode, in full remission
CPT/HCPCS: 36415; 80053; 80061; 82043; 82570; 84439; 84443

== ENCOUNTER → 2020-04-21 14:02 | Outpatient (CLI) | payer OTHER, SELFPAY ==
[2019-11-18 10:50] VITALS: BMI 41.9
[2020-04-21] MEDS: COVID-19 VACC(MODERNA-1)/PF 100 MCG/0.5 ML VIAL IM (14:06)
== END ==
PROVIDERS: PCP Family Medicine; Visit Provider Internal Medicine
DX: Z23 Encounter for immunization (principal)
CPT/HCPCS: 0011A; 91301

== ENCOUNTER → 2020-05-20 12:00 | Outpatient (CLI) | payer OTHER, SELFPAY ==
[2019-11-18 10:50] VITALS: BMI 41.9
[2020-05-20] MEDS: COVID-19 VACC #2, MRNA(MOD) 100 MCG/0.5 ML VIAL IM (12:12)
== END ==
PROVIDERS: PCP Family Medicine; Visit Provider Internal Medicine
DX: Z23 Encounter for immunization (principal)
CPT/HCPCS: 0012A; 91301

== ENCOUNTER → 2020-07-20 16:15 | Outpatient (CLI) | payer OTHER, SELFPAY ==
[2019-11-18 10:50] VITALS: BMI 41.9
[2020-07-20 17:40] LABS: TSH w/ Reflex to FT4 5.87 uIU/mL (0.47-4.68)
[2020-07-20 18:18] LABS: Free T4, Direct Thyroxine 1.16 ng/dL (0.78-2.19)
== END ==
PROVIDERS: PCP Family Medicine; Referring Provider Family Medicine; Visit Provider Family Medicine
DX: E03.9 Hypothyroidism, unspecified (principal)
CPT/HCPCS: 36415; 84439; 84443

== ENCOUNTER → 2020-11-25 14:30 | Outpatient (CLI) | payer OTHER, SELFPAY ==
[2019-11-18 10:50] VITALS: BMI 41.9
--- NOTE | 2020-11-25 | DI.RAD.S_ITS ---
PROCEDURE: XR ANKLE LT MIN 3V INDICATIONS: CHRONIC PAIN OF LEFT ANKLE TECHNIQUE: 3 weight-bearing views of the ankle were acquired. COMPARISON: None. FINDINGS: Bones: No acute fractures or dislocations. Ankle mortise is normally aligned. No suspicious bony lesions. There is pes planus alignment. Contact between the lateral process of the talus and the adjacent calcaneus is suspicious for hindfoot valgus. Posterior and plantar calcaneal spurs are present. Soft tissues: Mild soft tissue swelling is seen around the ankle. IMPRESSION: No acute osseous abnormality. Mild pes planus and suspected hindfoot valgus. Dictated by: Boogie Amos M.D. on 11/25/2020 at 15:42 Approved by: Boogie Amos M.D. on 11/25/2020 at 15:44
--- NOTE | 2020-11-25 14:34 | DI.RAD.S_ITS ---
PROCEDURE: XR FOOT LT MIN 3V INDICATIONS: CHRONIC PAIN OF LEFT ANKLE TECHNIQUE: 3 views of the foot were acquired. COMPARISON: [facility], CR, XR ANKLE LT MIN 3V, 11/25/2020, 14:36. FINDINGS: Bones: No fractures or dislocations. No suspicious bony lesions. Moderate hallux valgus deformity of the great toe is seen. There are degenerative changes of the interphalangeal joints. Degenerative changes of the mid are also noted. Soft tissues: No tibiotalar joint effusion. Achilles tendon appears normal. IMPRESSION: Moderate hallux valgus deformity of the great toe. Dictated by: Jarrett Morrison M.D. on 11/25/2020 at 15:03 Approved by: Jarrett Morrison M.D. on 11/25/2020 at 15:05
== END ==
PROVIDERS: PCP Family Medicine; Referring Provider Podiatrist; Visit Provider Podiatrist
DX: M25.572 Pain in left ankle and joints of left foot (principal); M20.12 Hallux valgus (acquired), left foot; M79.89 Other specified soft tissue disorders; G89.29 Other chronic pain
CPT/HCPCS: 73610; 73630

== ENCOUNTER → 2021-01-17 09:55 | Outpatient (CLI) | payer OTHER, SELFPAY ==
[2019-11-18 10:50] VITALS: BMI 41.9
[2021-01-17 12:21] LABS: COVID19 -Nasal RAPID Negative (Negative)
== END ==
PROVIDERS: PCP Family Medicine; Visit Provider Nurse Practitioner Family
DX: Z20.822 Contact with and (suspected) exposure to COVID-19 (principal)
CPT/HCPCS: 87635

== ENCOUNTER → 2021-01-23 11:40 | Outpatient (CLI) | payer OTHER, SELFPAY ==
[2019-11-18 10:50] VITALS: BMI 41.9
[2021-01-23 13:33] LABS: COVID19 -Nasal RAPID Negative (Negative)
== END ==
PROVIDERS: PCP Family Medicine; Visit Provider Nurse Practitioner Family
DX: Z20.822 Contact with and (suspected) exposure to COVID-19 (principal)
CPT/HCPCS: 87635

== ENCOUNTER → 2021-03-21 15:16 | Outpatient (CLI) | payer OTHER, SELFPAY ==
[2019-11-18 10:50] VITALS: BMI 41.9
== END ==
PROVIDERS: PCP Family Medicine; Referring Provider Internal Medicine; Visit Provider Internal Medicine
DX: Z23 Encounter for immunization (principal)
CPT/HCPCS: 90471; 90686

== ENCOUNTER → 2021-04-24 14:03 | Outpatient (CLI) | payer OTHER, SELFPAY ==
[2019-11-18 10:50] VITALS: BMI 41.9
[2021-04-24 17:11] LABS: Free T4, Direct Thyroxine 0.73 ng/dL (0.78-2.19)
== END ==
PROVIDERS: PCP Family Medicine; Referring Provider Family Medicine; Visit Provider Family Medicine
DX: E03.9 Hypothyroidism, unspecified (principal)
CPT/HCPCS: 36415; 84439; 84443

== ENCOUNTER → 2021-06-20 14:00 | Outpatient (CLI) | payer OTHER, SELFPAY ==
[2019-11-18 10:50] VITALS: BMI 41.9
[2021-06-20 22:27] LABS: Free T4, Direct Thyroxine 1.08 ng/dL (0.78-2.19)
== END ==
PROVIDERS: PCP Family Medicine; Referring Provider Family Medicine; Visit Provider Family Medicine
DX: E03.9 Hypothyroidism, unspecified (principal); R89.9 Unspecified abnormal finding in specimens from other organs, systems and tissues
CPT/HCPCS: 36415; 84439; 84443

== ENCOUNTER → 2021-07-28 07:19 | Outpatient (CLI) | payer OTHER, SELFPAY ==
[2019-11-18 10:50] VITALS: BMI 41.9
[2021-07-28 07:58] LABS: Add Manual Diff / Slide Review NO; Basophils Absolute Auto 200 /uL (0-100); Basophils Percent Auto 2.8 % (0-2); Eosinophils Absolute Auto 400 /uL (0-450); Eosinophils Percent Auto 5.7 % (2-4); Hematocrit 40.8 % (36-46); Hemoglobin 13.3 g/dL (12.0-16.0); Lymphocytes Absolute Auto 1800 /uL (1100-4500); Lymphocytes Percent Auto 29.1 % (25-40); Mean Corpuscular HGB Conc 32.6 % (30-36); Mean Corpuscular Hemoglobin 30.3 PG (26-34); Monocytes Absolute Auto 500 /uL (0-900); Monocytes Percent Auto 8.3 % (3-14); Neutrophils Absolute Auto 3300 /uL (1500-7000); Neutrophils Percent Auto 54.1 % (50-75); Platelet Count 207 X10^3/uL (150-400); Red Blood Cell Count 4.39 X10^6/uL (4.0-5.2); Red Cell Distribution Width 13.2 % (11.6-14.8); White Blood Cell Count 6.2 X10^3/uL (4.5-11.0)
[2021-07-28 08:08] LABS: Hemoglobin A1C% w Est Avg Glu 6.2 % (4.0-6.0)
[2021-07-28 08:19] LABS: Iron 106 ug/dL (37-170)
[2021-07-28 08:23] LABS: Alanine Aminotransferase 17 IU/L (<35); Albumin 4.5 g/dL (3.5-5.0); Albumin Globulin Ratio 1.7 (1.0-2.8); Alkaline Phosphatase 64 U/L (38-126); Aspartate Aminotransferase 18 IU/L (14-36); BUN Creatinine Ratio 20.5 (6-22); Bilirubin Total 0.5 mg/dL (0.2-1.3); Blood Urea Nitrogen 23 mg/dL (7-17); Calcium 9.2 mg/dL (8.4-10.2); Carbon Dioxide 27 mmol/L (22-32); Chloride 106 mmol/L (98-107); Cholesterol 148 mg/dL (140-199); Estimated Glomerular Filt Rate 56 mL/min (>60); Globulin 2.6 g/dL (1.7-4.1); Glucose 117 mg/dL (80-110); HDL Cholesterol 54 mg/dL (40-60); HEMOLYSIS < 15 (0-50); LDL Cholesterol Calculated 75 mg/dL (<100); Potassium 4.4 mmol/L (3.4-5.1); Sodium 142 mmol/L (137-145); Total Protein 7.1 g/dL (6.3-8.2); Triglycerides 96 mg/dL (35-150)
[2021-07-28 08:29] LABS: Percent Iron Saturation 29 % (15-50); Total Iron Binding Capacity 369 ug/dL (265-497)
[2021-07-28 08:38] LABS: Vitamin D 25 Hydroxy (D3) 19.5 ng/mL (30.0-100.0)
[2021-07-28 08:57] LABS: Ferritin 49 ng/mL (11-264)
[2021-07-28 09:17] LABS: Free T4, Direct Thyroxine 1.07 ng/dL (0.78-2.19)
[2021-07-28 09:29] LABS: Folate 13.3 ng/mL (2.76-20.0); Vitamin B12 617 pg/mL (239-931)
[2021-07-29 07:36] LABS: Parathyroid Hormone Int 91 pg/mL (15-65)
[2021-08-03 17:34] LABS: Zinc 87 ug/dL (44-115)
[2021-08-04 05:46] LABS: Vitamin B1 122.5 nmol/L (66.5-200.0)
== END ==
PROVIDERS: PCP Family Medicine; Referring Provider Surgery; Visit Provider Surgery
DX: Z71.3 Dietary counseling and surveillance (principal); R21 Rash and other nonspecific skin eruption
CPT/HCPCS: 36415; 80053; 80061; 82306; 82607; 82728; 82746; 83036; 83540; 83550; 83970; 84425; 84439; 84443; 84590; 84630; 85025

== ENCOUNTER → 2021-07-31 14:28 | Outpatient (CLI) | payer OTHER, SELFPAY ==
[2019-11-18 10:50] VITALS: BMI 41.9
--- NOTE | 2021-07-31 14:31 | DI.RAD.S_ITS ---
PROCEDURE: XR CHEST 2V INDICATIONS: TOBACCO USE TECHNIQUE: 2 views of the chest were acquired. COMPARISON: [facility], , CHEST 1 VIEW, 02/28/2010, 16:57. FINDINGS: Surgical changes and devices: None. Lungs and pleura: Mild interstitial prominence. No focal consolidation or pleural effusion. No pneumothorax. Mediastinum: Mediastinal contours are normal. Heart size is moderately increased. Bones and chest wall: No suspicious bony abnormalities. Soft tissues appear unremarkable. IMPRESSION: 1. Mild interstitial prominence consistent with respiratory bronchiolitis (i.e., smoker's lung). 2. Mild cardiomegaly. Dictated by: Radha Ibarra M.D. on 07/31/2021 at 15:46 Approved by: Radha Ibarra M.D. on 07/31/2021 at 15:50
== END ==
PROVIDERS: PCP Family Medicine; Referring Provider Surgery; Visit Provider Surgery
DX: I51.7 Cardiomegaly (principal); Z72.0 Tobacco use
CPT/HCPCS: 71046

== ENCOUNTER → 2021-08-01 14:10 | Outpatient (CLI) | payer OTHER, SELFPAY ==
[2019-11-18 10:50] VITALS: BMI 41.9
== END ==
PROVIDERS: PCP Family Medicine; Referring Provider Surgery; Visit Provider Surgery
DX: Z01.818 Encounter for other preprocedural examination (principal)
CPT/HCPCS: 93005

== ENCOUNTER → 2022-02-26 17:33 | Outpatient (CLI) | payer OTHER, SELFPAY ==
[2022-02-14 13:19] VITALS: BMI 41.9
== END ==
PROVIDERS: PCP Nurse Practitioner; Referring Provider Internal Medicine; Visit Provider Internal Medicine
DX: Z23 Encounter for immunization (principal)
CPT/HCPCS: 90471; 90686

== ENCOUNTER → 2022-03-24 09:43 | Outpatient (CLI) | payer OTHER, SELFPAY ==
[2022-02-14 13:19] VITALS: BMI 41.9
[2022-03-24 10:49] LABS: Hematocrit 42.6 % (36-46); Hemoglobin 14.5 g/dL (12.0-16.0); Mean Corpuscular Volume 91.3 fL (80-100); Platelet Count 220 X10^3/uL (150-400); Red Blood Cell Count 4.67 X10^6/uL (4.0-5.2); Red Cell Distribution Width 13.8 % (11.6-14.8); White Blood Cell Count 7.7 X10^3/uL (4.5-11.0)
[2022-03-24 11:00] LABS: Alanine Aminotransferase 19 IU/L (<35); Albumin 4.3 g/dL (3.5-5.0); Albumin Globulin Ratio 1.5 (1.0-2.8); Alkaline Phosphatase 63 U/L (38-126); Aspartate Aminotransferase 19 IU/L (14-36); BUN Creatinine Ratio 21.5 (6-22); Bilirubin Total 0.5 mg/dL (0.2-1.3); Blood Urea Nitrogen 17 mg/dL (7-17); Carbon Dioxide 26 mmol/L (22-32); Chloride 105 mmol/L (98-107); Cholesterol 211 mg/dL (140-199); Estimated Glomerular Filt Rate > 60 mL/min (>60); Globulin 2.9 g/dL (1.7-4.1); Glucose 107 mg/dL (80-110); HDL Cholesterol 42 mg/dL (40-60); HEMOLYSIS < 15 (0-50); LDL Cholesterol Calculated 123 mg/dL (<100); Sodium 139 mmol/L (137-145); Total Protein 7.2 g/dL (6.3-8.2); Triglycerides 232 mg/dL (35-150)
[2022-03-24 11:07] LABS: Hemoglobin A1C% w Est Avg Glu 6.6 % (4.0-6.0)
[2022-03-24 11:39] LABS: Thyroid Stimulating Hormone 7.58 uIU/mL (0.47-4.68)
[2022-03-24 11:48] LABS: Creatinine Urine Random 117.7 mg/dL
[2022-03-24 11:52] LABS: Microalbumi Creatinin Ratio Ur 7.6 ug/mg CR (<30); Microalbumin Urine Random 0.9 mg/dL (0-1.6)
== END ==
PROVIDERS: PCP Nurse Practitioner; Referring Provider Nurse Practitioner; Visit Provider Nurse Practitioner
DX: E03.9 Hypothyroidism, unspecified (principal); E78.5 Hyperlipidemia, unspecified; F32.5 Major depressive disorder, single episode, in full remission; I10 Essential (primary) hypertension; Z00.00 Encounter for general adult medical examination without abnormal findings
CPT/HCPCS: 36415; 80053; 80061; 82043; 82570; 83036; 84443; 85027

== ENCOUNTER → 2022-03-28 09:50 | Outpatient (CLI) | payer OTHER, SELFPAY ==
[2022-02-14 13:19] VITALS: BMI 41.9
[2022-03-28 10:44] LABS: COVID19 -Nasal RAPID Negative (Negative)
== END ==
PROVIDERS: PCP Nurse Practitioner; Visit Provider Surgery
DX: Z01.812 Encounter for preprocedural laboratory examination (principal); Z20.822 Contact with and (suspected) exposure to COVID-19
CPT/HCPCS: 87635; C9803

== ENCOUNTER 2022-03-29 07:52 | Day surgery (SDC) | payer OTHER, SELFPAY ==
[2022-02-14 13:19] VITALS: BMI 41.9
--- NOTE | 2022-03-29 | PATH_ITS ---
[facility] Accession Number: [id number] . 01 Material submitted: . PART A: stomach - ANTRUM PART B: colon - TRANSVERSE COLON POLYP . 01 Diagnosis: A. Antrum, Biopsy: Gastric antral mucosa with features of reactive gastropathy. Negative for Helicobacter organisms by immunohistochemistry. Negative for intestinal metaplasia. Negative for dysplasia or malignancy. . B. Transverse Colon Polyp: Sessile serrated adenoma. MRV 04/04/2022 1305 Local . 01 Electronically signed: . Aubrey Cartwright MD, PhD, Pathologist NPI- [id number] . 01 Gross description: . A. Received in formalin labeled with the patient's name, and antrum, and consists of three irregular quintero soft tissue fragments ranging from 0.1 to 0.3 cm in greatest dimension. Submitted entirely in cassette A1. B. Received in formalin labeled with the patient's name, and transverse colon polyp, and consists of a single irregular quintero soft tissue fragment measuring 0.7 cm in greatest dimension. Submitted entirely in cassette B1. ([id number]) /MRV 03/30/2022 1707 Local . 01 Microscopic: . A. An immunohistochemical stain was performed to evaluate for Helicobacter organisms and is negative. The control stain showed appropriate reactivity. . * This test was developed and its performance characteristics determined by [employer]. It has not been cleared or approved by the U.S. Food and Drug Administration. The FDA has determined that such clearance or approval is not necessary. This test is used for clinical purposes. It should not be regarded as investigational or for research. . 01 Pathologist provided ICD-10: K29.60, D12.3 . 01 CPT . 236417, 945627, X66521 Specimen Comment: A courtesy copy of this report has been sent to [phone] Performed at: 01 [facility] [address] [place] [address], [place], [place] [id number] MD Lino Hurley MD Phone: [phone]
[2022-03-29] MEDS: LACTATED RINGERS 1,000 ML 84 ML IV (08:14)
[2022-03-29 08:18] VITALS: BP 145/89; PULSE 71; RESP 18; TEMP 36.3; O2SAT 97; BMI 43.5
--- NOTE | 2022-03-29 08:30 | P.HP_ITS ---
History of Present Illness History of Present Illness Date Patient Seen: 03/29/22 Time Patient Seen: 08:31 Chief complaint: NVC Narrative: Naheed is here for her EGD and colonoscopy. See office note from February for details. To summarize, she is having an EGD for preparation for weight loss surgery and she is having a colonoscopy because she is due for colon cancer screening. Patient History Medical History (Updated 02/28/22 @ 08:22 by KINGS Cardoza) Atrial fibrillation Back muscle spasm Cardiomyopathy Chronic back pain greater than 3 months duration Heart failure, systolic and diastolic Hyperlipidemia Hypertension Hyperthyroidism Hypothyroidism Moderate tobacco dependence (06/08/15) Obesity Osteoarthritis of left knee (04/17/17) Osteoarthritis of right knee (01/30/17) Sun allergy Tobacco dependence due to cigarettes Tobacco use disorder Surgical History History of knee replacement procedure of left knee History of knee replacement procedure of right knee S/P thoracentesis Family & Social History Social History: household members friend(s),other Tobacco & Substance use: Tobacco type cigarettes Smoking Status Current every day smoker alcohol intake current alcohol intake frequency holiday/special occasion Substance Use Type former substance user Meds Home Medications and Allergies Home Medications Medication Instructions Recorded Confirmed Type aspirin 81 mg tablet,delayed 81 mg PO BID #60 tabs 06/18/19 02/28/22 Rx release amlodipine 5 mg tablet 10 mg PO DAILY #180 tabs 02/06/22 02/28/22 Rx citalopram 40 mg tablet See Rx Instructions .Route 02/06/22 02/28/22 Rx .COMPLEX #90 tabs furosemide 20 mg tablet See Rx Instructions .Route 02/06/22 02/28/22 Rx .COMPLEX #90 tabs metoprolol tartrate 75 mg tablet 75 mg PO BID #180 tabs 02/06/22 02/28/22 Rx hydrocodone 10 mg-acetaminophen 1 tab PO TID pain under contract 02/28/22 02/28/22 Rx 325 mg tablet #90 tabs rosuvastatin 20 mg tablet See Rx Instructions .Route 02/28/22 02/28/22 Rx .COMPLEX #90 tabs varenicline 0.5 mg (11)-1 mg (42) See Rx Instructions PO PER PKG DIR 02/28/22 02/28/22 Rx tablets in a dose pack (Chantix #53 ea Starting Month Box) levothyroxine 175 mcg tablet 175 mcg PO DAILY #90 tabs 03/26/22 Rx Allergies Allergy/AdvReac Type Severity Reaction Status Date / Time No Known Drug Allergies Allergy Verified 03/29/22 08:29 Exam Vital Signs (past 8 hours): - 03/29/22 08:18 Temperature 97.3 F L Pulse Rate 71 Respiratory Rate 18 Blood Pressure 145/89 H Pulse Oximetry 97 Oxygen Delivery Method Room Air Oxygen Delivery Method Room Air Narrative Exam Narrative: Central adiposity Assessment & Plan Assessment and plan (1) Colon cancer screening: Status: Acute (2) Obesity: Qualifiers: Obesity type: due to excess calories Obesity classification: adult class 3 (BMI >= 40) Serious obesity comorbidity presence: with serious comorbidity Body mass index: BMI 40.0-44.9 Qualified Code(s): E66.01 - Morbid (severe) obesity due to excess calories; Z68.41 - Body mass index [BMI]40.0- 44.9, adult Status: None Plan 61-year-old woman who is here for an EGD and colonoscopy. She is aware of the risks of the procedure and she would like to proceed. Time Spent With Patient Critical Care time: I spent a total of [] minutes of critical care time on this patient's care today; this time is exclusive of procedural time.
--- NOTE | 2022-03-29 09:17 | PM.OP.EC ---
Operative Date/Time/Diagnoses Date of procedure: 03/29/22 Time of procedure: 09:18 Pre-op diagnosis: Obesity and colon cancer screening Post-op diagnosis: same Procedure & Clinicians Study performed: EGD and colonoscopy Same procedure as scheduled: Yes Surgeon: Shawn Knowles Procedure Notes Procedure in detail: Surgeon: Shawn Knowles MD Anesthesia: Dr. Abel CHRISTIE Procedure in detail: A timeout was performed. A bite blocked was placed and monitors were attached to the patient. The patient was positioned in a left lateral decubitus position. Sedation was administered by Dr. Roman. Once the patient was sedated the endoscope was inserted through the bite block and passed through the esophagus and stomach and into the duodenum. The duodenum and duodenal bulb appeared normal. We then withdrew the scope into the stomach. There was some mild antritis and evidence of but least 2 small old healing ulcers. A few random biopsies were taken from the antrum. The rest of the stomach was grossly normal. The endoscope was retroflexed and no hiatal hernia was seen. The endoscope was straightned and withdrawn into the esophagus. No abnormalities were noted. Findings: Mild antritis and evidence of small, old healing ulcers Next we repositioned the patient for a colonoscopy. A digital rectal exam was performed and was normal. The colonoscope was inserted and advanced to the cecum. The appendiceal orifice was identified and photographed. The scope was slowly withdrawn over greater than 6 minutes. There was a 6 mm flat polyp in the mid transverse colon removed with a cold snare. The scope was retroflexed in the rectum and no other abnormalities were noted. Findings: A 6 mm flat transverse colon polyp EBL: 5 mL Scope withdrawal time: 7 Sedation minutes: 12 Post-procedure Recommendations: Will call with biopsy results Disposition: PACU
[2022-03-29 09:21] VITALS: BP 125/77; PULSE 67; RESP 20; TEMP 36.4; O2SAT 95
[2022-03-29 09:26] VITALS: BP 133/84; PULSE 64; RESP 15; O2SAT 97
[2022-03-29 09:31] VITALS: BP 123/82; PULSE 75; RESP 18; TEMP 36.4; O2SAT 97
[2022-03-29 09:36] VITALS: BP 128/87; PULSE 65; RESP 17; O2SAT 97
[2022-03-29 09:50] VITALS: BP 144/88; PULSE 64; RESP 16; TEMP 36.4; O2SAT 97
== END 2022-03-29 09:55 | disposition home or self-care (01) ==
PROVIDERS: PCP Nurse Practitioner; Referring Provider Surgery; Visit Provider Surgery
PROC: 0DJ08ZZ Inspection of Upper Intestinal Tract, Via Natural or Artificial Opening Endoscopic (ICD-10-PCS; CPT 43235; principal; 2022-03-29 08:45)
PROC: 0DJD8ZZ Inspection of Lower Intestinal Tract, Via Natural or Artificial Opening Endoscopic (ICD-10-PCS; CPT 45378; 2022-03-29 08:45)
DX: Z12.11 Encounter for screening for malignant neoplasm of colon (principal); E66.01 Morbid (severe) obesity due to excess calories; Z68.41 Body mass index [BMI] 40.0-44.9, adult; Z01.818 Encounter for other preprocedural examination; K31.9 Disease of stomach and duodenum, unspecified; D12.3 Benign neoplasm of transverse colon
CPT/HCPCS: 45385; 43239

== ENCOUNTER → 2022-05-03 15:10 | Outpatient (CLI) | payer OTHER, SELFPAY ==
[2022-02-14 13:19] VITALS: BMI 41.9
[2022-05-04 20:35] LABS: Occult Blood 1 Negative (Negative); Occult Blood 2 Negative (Negative); Occult Blood 3 Negative (Negative)
== END ==
PROVIDERS: PCP Nurse Practitioner; Referring Provider Nurse Practitioner; Visit Provider Nurse Practitioner
DX: K92.2 Gastrointestinal hemorrhage, unspecified (principal)
CPT/HCPCS: 82270

== ENCOUNTER → 2022-08-13 10:13 | Outpatient (CLI) | payer OTHER, SELFPAY ==
[2022-02-14 13:19] VITALS: BMI 41.9
[2022-08-13 11:47] LABS: Thyroid Stimulating Hormone 12.4 uIU/mL (0.47-4.68)
== END ==
PROVIDERS: PCP Nurse Practitioner; Referring Provider Nurse Practitioner; Visit Provider Nurse Practitioner
DX: E03.9 Hypothyroidism, unspecified (principal)
CPT/HCPCS: 36415; 84443

== ENCOUNTER → 2023-02-22 08:05 | Outpatient (CLI) | payer OTHER, SELFPAY ==
[2022-08-13 10:12] VITALS: BMI 41.9
== END ==
PROVIDERS: PCP Nurse Practitioner; Referring Provider Family Medicine; Visit Provider Family Medicine
DX: Z23 Encounter for immunization (principal)
CPT/HCPCS: 90471; 90686

== ENCOUNTER → 2023-06-21 13:58 | Outpatient (CLI) | payer OTHER, SELFPAY ==
[2022-08-13 10:12] VITALS: BMI 41.9
[2023-06-21 15:26] LABS: Hemoglobin A1C% w Est Avg Glu 6.1 % (4.0-6.0)
[2023-06-21 15:33] LABS: Alanine Aminotransferase 18 IU/L (<35); Albumin 3.7 g/dL (3.5-5.0); Albumin Globulin Ratio 1.3 (1.0-2.8); Alkaline Phosphatase 73 U/L (38-126); Aspartate Aminotransferase 20 IU/L (14-36); BUN Creatinine Ratio 16.7 (6-22); Bilirubin Total 0.3 mg/dL (0.2-1.3); Blood Urea Nitrogen 19 mg/dL (7-17); Calcium 8.9 mg/dL (8.4-10.2); Carbon Dioxide 25 mmol/L (22-32); Cholesterol 207 mg/dL (140-199); Estimated Glomerular Filt Rate 54 mL/min (>60); Globulin 2.9 g/dL (1.7-4.1); Glucose 143 mg/dL (80-110); HDL Cholesterol 42 mg/dL (40-60); HEMOLYSIS 22 (0-50); Total Protein 6.6 g/dL (6.3-8.2); Triglycerides 413 mg/dL (35-150)
[2023-06-21 15:46] LABS: Chloride 112 mmol/L (98-107); Potassium 3.7 mmol/L (3.4-5.1); Sodium 140 mmol/L (137-145)
[2023-06-21 15:57] LABS: Free T4, Direct Thyroxine 0.84 ng/dL (0.78-2.19)
[2023-06-21 16:11] LABS: Thyroid Stimulating Hormone 8.61 uIU/mL (0.47-4.68)
== END ==
PROVIDERS: PCP Nurse Practitioner; Referring Provider Family Medicine; Visit Provider Family Medicine
DX: R73.03 Prediabetes (principal); I48.91 Unspecified atrial fibrillation; E03.9 Hypothyroidism, unspecified; I10 Essential (primary) hypertension; E78.5 Hyperlipidemia, unspecified
CPT/HCPCS: 36415; 80053; 80061; 83036; 84439; 84443

== ENCOUNTER → 2023-09-26 09:56 | Outpatient (CLI) | payer OTHER, SELFPAY ==
[2022-08-13 10:12] VITALS: BMI 41.9
[2023-09-26 11:19] LABS: Add Manual Diff / Slide Review NO; Basophils Absolute Auto 100 /uL (0-100); Basophils Percent Auto 1.4 % (0-2); Eosinophils Absolute Auto 400 /uL (0-450); Eosinophils Percent Auto 5.8 % (2-4); Hematocrit 42.1 % (36-46); Lymphocytes Absolute Auto 2000 /uL (1100-4500); Lymphocytes Percent Auto 29.1 % (25-40); Mean Corpuscular HGB Conc 33.2 % (30-36); Mean Corpuscular Hemoglobin 30.2 PG (26-34); Mean Corpuscular Volume 90.8 fL (80-100); Monocytes Absolute Auto 500 /uL (0-900); Monocytes Percent Auto 7.3 % (3-14); Neutrophils Absolute Auto 4000 /uL (1500-7000); Neutrophils Percent Auto 56.4 % (50-75); Platelet Count 263 X10^3/uL (150-400); Red Blood Cell Count 4.64 X10^6/uL (4.0-5.2); Red Cell Distribution Width 13.9 % (11.6-14.8)
[2023-09-26 11:51] LABS: Alanine Aminotransferase 16 IU/L (<35); Albumin 4.2 g/dL (3.5-5.0); Albumin Globulin Ratio 1.4 (1.0-2.8); Alkaline Phosphatase 73 U/L (38-126); Aspartate Aminotransferase 20 IU/L (14-36); BUN Creatinine Ratio 20.4 (6-22); Bilirubin Total 0.6 mg/dL (0.2-1.3); Blood Urea Nitrogen 20 mg/dL (7-17); Calcium 8.8 mg/dL (8.4-10.2); Carbon Dioxide 28 mmol/L (22-32); Chloride 107 mmol/L (98-107); Cholesterol 221 mg/dL (140-199); Estimated Glomerular Filt Rate > 60 mL/min (>60); Globulin 2.9 g/dL (1.7-4.1); Glucose 114 mg/dL (80-110); HDL Cholesterol 50 mg/dL (40-60); HEMOLYSIS < 15 (0-50); Iron 96 ug/dL (37-170); LDL Cholesterol Calculated 141 mg/dL (<100); Potassium 3.9 mmol/L (3.4-5.1); Sodium 140 mmol/L (137-145); Total Protein 7.1 g/dL (6.3-8.2); Triglycerides 148 mg/dL (35-150)
[2023-09-26 11:57] LABS: Hemoglobin A1C% w Est Avg Glu 6.2 % (4.0-6.0)
[2023-09-26 12:03] LABS: Percent Iron Saturation 31 % (15-50); Total Iron Binding Capacity 314 ug/dL (265-497); Transferrin 246 mg/dL (206-381)
[2023-09-26 12:22] LABS: Thyroid Stimulating Hormone 6.07 uIU/mL (0.47-4.68)
[2023-09-26 12:24] LABS: Ferritin 28 ng/mL (11-264)
[2023-09-26 12:56] LABS: Folate > 20.0 ng/mL (2.76-20.0); Vitamin B12 705 pg/mL (239-931)
[2023-09-26 16:01] LABS: Vitamin D 25 Hydroxy (D3) 34.7 ng/mL (30.0-100.0)
[2023-09-29 08:07] LABS: Calcium 9.3 mg/dL (8.7-10.3); Parathyroid Hormone, Intact 56 pg/mL (15-65)
[2023-10-01 23:36] LABS: Vitamin A 59.9 ug/dL (22.0-69.5)
[2023-10-02 10:12] LABS: Vitamin B1 178.3 nmol/L (66.5-200.0)
== END ==
PROVIDERS: PCP Nurse Practitioner; Referring Provider Nurse Practitioner; Visit Provider Nurse Practitioner
DX: E03.9 Hypothyroidism, unspecified (principal); I10 Essential (primary) hypertension; E78.5 Hyperlipidemia, unspecified; F32.9 Major depressive disorder, single episode, unspecified; I48.91 Unspecified atrial fibrillation; R73.03 Prediabetes; Z98.84 Bariatric surgery status; Z90.3 Acquired absence of stomach [part of]
CPT/HCPCS: 36415; 80053; 80061; 82306; 82310; 82607; 82728; 82746; 83036; 83540; 83550; 83970; 84425; 84443; 84590; 85025

== ENCOUNTER → 2024-02-07 | Outpatient (CLI) | payer OTHER, SELFPAY ==
[2022-08-13 10:12] VITALS: BMI 41.9
== END ==
PROVIDERS: PCP Nurse Practitioner Family; Referring Provider Internal Medicine; Visit Provider Internal Medicine
DX: Z23 Encounter for immunization (principal)
CPT/HCPCS: 90471; 90656

== ENCOUNTER → 2024-07-27 08:54 | Outpatient (CLI) | payer OTHER, SELFPAY ==
[2022-08-13 10:12] VITALS: BMI 41.9
[2024-07-27 09:48] LABS: Add Manual Diff / Slide Review NO; Basophils Absolute Auto 100 /uL (0-100); Basophils Percent Auto 1.3 % (0-2); Eosinophils Absolute Auto 200 /uL (0-450); Eosinophils Percent Auto 3.5 % (2-4); Hemoglobin 14.4 g/dL (12.0-16.0); Lymphocytes Absolute Auto 1900 /uL (1100-4500); Lymphocytes Percent Auto 26.7 % (25-40); Mean Corpuscular HGB Conc 33.5 % (30-36); Mean Corpuscular Hemoglobin 31.4 PG (26-34); Mean Corpuscular Volume 93.6 fL (80-100); Monocytes Absolute Auto 500 /uL (0-900); Monocytes Percent Auto 6.7 % (3-14); Neutrophils Absolute Auto 4400 /uL (1500-7000); Neutrophils Percent Auto 61.8 % (50-75); Platelet Count 232 X10^3/uL (150-400); Red Blood Cell Count 4.59 X10^6/uL (4.0-5.2); Red Cell Distribution Width 14.3 % (11.6-14.8); White Blood Cell Count 7.1 X10^3/uL (4.5-11.0)
[2024-07-27 09:55] LABS: Hemoglobin A1C% w Est Avg Glu 5.6 % (4.0-6.0)
[2024-07-27 10:09] LABS: BUN Creatinine Ratio 15.3 (6-22); Blood Urea Nitrogen 17 mg/dL (7-17); Calcium 9.6 mg/dL (8.4-10.2); Carbon Dioxide 28 mmol/L (22-32); Chloride 104 mmol/L (98-107); Cholesterol 176 mg/dL (140-199); Estimated Glomerular Filt Rate 56 mL/min (>60); Glucose 107 mg/dL (80-110); HDL Cholesterol 50 mg/dL (40-60); HEMOLYSIS < 15 (0-50); LDL Cholesterol Calculated 98 mg/dL (<100); Potassium 4.3 mmol/L (3.4-5.1); Sodium 141 mmol/L (137-145); Triglycerides 140 mg/dL (35-150)
[2024-07-27 11:08] LABS: Free T4, Direct Thyroxine 0.29 ng/dL (0.78-2.19)
== END ==
PROVIDERS: PCP Nurse Practitioner Family; Referring Provider Nurse Practitioner Family; Visit Provider Nurse Practitioner Family
DX: F17.200 Nicotine dependence, unspecified, uncomplicated (principal); R73.03 Prediabetes; Z98.84 Bariatric surgery status; E03.9 Hypothyroidism, unspecified; I10 Essential (primary) hypertension; E78.5 Hyperlipidemia, unspecified
CPT/HCPCS: 36415; 80048; 80061; 83036; 84439; 84443; 85025

== ENCOUNTER → 2024-08-26 09:01 | Outpatient (CLI) | payer OTHER, SELFPAY ==
[2022-08-13 10:12] VITALS: BMI 41.9
[2024-08-26 10:08] LABS: BUN Creatinine Ratio 16.7 (6-22); Blood Urea Nitrogen 16 mg/dL (7-17); Calcium 9.5 mg/dL (8.4-10.2); Carbon Dioxide 25 mmol/L (22-32); Chloride 108 mmol/L (98-107); Estimated Glomerular Filt Rate > 60 mL/min (>60); Glucose 100 mg/dL (70-99); HEMOLYSIS < 15 (0-50); Potassium 4.3 mmol/L (3.4-5.1); Sodium 139 mmol/L (137-145)
[2024-08-26 10:38] LABS: TSH w/ Reflex to FT4 2.16 uIU/mL (0.47-4.68)
== END ==
PROVIDERS: PCP Nurse Practitioner Family; Referring Provider Nurse Practitioner Family; Visit Provider Nurse Practitioner Family
DX: E03.9 Hypothyroidism, unspecified (principal); I10 Essential (primary) hypertension
CPT/HCPCS: 36415; 80048; 84443